=== PATIENT | female | born 1940 | race Two or more races ===

== ENCOUNTER 2017-09-20 21:58 | Emergency (ER) | payer MEDICARE ==
[2017-09-20 23:40] LABS: APPEARANCE,URINE CLEAR; BILIRUBIN,URINE NEGATIVE (NEGATIVE); GLUCOSE, URINE NEGATIVE (NEGATIVE); KETONES,URINE NEGATIVE (NEGATIVE); LEUKOCYTE ESTERASE,URINE LARGE (NEGATIVE); NITRITE,URINE NEGATIVE (NEGATIVE); PROTEIN,URINE NEGATIVE (NEGATIVE); URINE SPECIFIC GRAVITY 1.005
[2017-09-20 23:41] LABS: ABSOLUTE BASOPHILS # (AUTO) 0.1 10^3/uL (0.0-0.2); ABSOLUTE EOSINOPHILS # (AUTO) 0.3 10^3/uL (0.0-0.6); ABSOLUTE LYMPHOCYTES (AUTO) 1.6 10^3/uL (0.5-4.7); ABSOLUTE NEUT (AUTO) 5.2 10^3/uL (1.7-8.2); HEMATOCRIT 36.9 % (36.0-47.0); HEMOGLOBIN 12.5 g/dL (12.0-15.5); HGB HCT DIFFERENCE 0.6; LYMPHOCYTES % (AUTO) 19.3 % (13-45); MEAN CORPUSCULAR HGB CONC 33.8 g/dL (32.0-36.0); MEAN CORPUSCULAR VOLUME 95 fl (80-97); MONOCYTES % (AUTO) 12.1 % (3-13); RED CELL DISTRIBUTION WIDTH 14.5 % (11.5-14.0); SEGMENTED NEUTROPHILS % (AUTO) 63.6 % (42-78); WHITE BLOOD COUNT 8.1 10^3/uL (4.0-10.5)
[2017-09-20 23:43] LABS: ALANINE AMINOTRANSFERASE 61 U/L (9-52); ALBUMIN 4.5 g/dL (3.5-5.0); ALKALINE PHOSPHATASE 357 U/L (38-126); ANION GAP 16 (5-19); ASPARTATE AMINO TRANSFERASE 66 U/L (14-36); BILIRUBIN,DIRECT 0.7 mg/dL (0.0-0.4); BILIRUBIN,TOTAL 1.2 mg/dL (0.2-1.3); BLOOD UREA NITROGEN 21 mg/dL (7-20); CALCIUM 9.6 mg/dL (8.4-10.2); CARBON DIOXIDE 26 mmol/L (22-30); CHLORIDE 102 mmol/L (98-107); GLUCOSE 107 mg/dL (75-110); MAGNESIUM 1.8 mg/dL (1.6-2.3); POTASSIUM 4.2 mmol/L (3.6-5.0); SODIUM 144.1 mmol/L (137-145); TOTAL PROTEIN 8.8 g/dL (6.3-8.2)
--- NOTE | 2017-09-20 23:50 | RADIOLOGY REPORT (SQ) ---
EXAM DESCRIPTION: CT HEAD WITHOUT CLINICAL HISTORY: 77 years Female, fall 1 week ago, L occipital contusion, dizzy COMPARISON: None. TECHNIQUE: This exam was performed according to our departmental dose-optimization program, which includes automated exposure control, adjustment of the mA and/or kV according to patient size and/or use of iterative reconstruction technique. FINDINGS: Brain parenchyma appears intact. Minimal white matter microangiopathy, minimal volume loss, intracranial atherosclerosis. No evidence of mass, mass effect, or midline shift. No hemorrhage or infarct. Extra-axial structures appear otherwise grossly intact. IMPRESSION: No acute findings.
--- NOTE | 2017-09-21 00:05 | RADIOLOGY REPORT (SQ) ---
EXAM DESCRIPTION: KNEE LEFT 2 VIEWS CLINICAL HISTORY: 77 years, Female, L knee pain, atraumatic COMPARISON: None. NUMBER OF VIEWS: Two TECHNIQUE: Frontal and lateral LIMITATIONS: None. FINDINGS: Mild osteoarthritis includes moderate medial and patellofemoral joint space narrowing, atherosclerosis, 0.2 cm ossicular fragment-loose body at the medial aspect of the medial compartment, 0.3 cm ossicular fragment/loose body at the tibial spine. Minimal joint fluid. IMPRESSION: No acute findings. Mild osteoarthritis. 2011 [facility] [employer]- All Rights Reserved
--- NOTE | 2017-09-21 00:48 | ER Document Report ---
ED General - General Chief Complaint: Other Stated Complaint: HEAD INJURY Time Seen by Provider: 09/20/17 22:33 Information source: Patient TRAVEL OUTSIDE OF THE [place] IN LAST 30 DAYS: No - HPI Notes: Patient is a 77-year-old female history of hypertension and dementia and osteoarthritis presents to the emergency department with report that she accidentally fell 1 week ago striking her left occipital region and since then she has had a mild headache which is improving. She states she has chronic pain to the left knee and this causes her to have some trouble ambulating. Patient also reports she feels dizzy when she stands at times and has to hold onto the martinez when she is walking. The patient does have a 4 prong cane that she is supposed to be using. Patient denies any chest pain or neck pain or change in her chronic lower back pain. She reports no abdominal pain, constipation, diarrhea, dysuria. Patient is alert to person and place, but not to year and president. Family states this is consistent with a previous history of dementia and is unchanged. - Related Data Allergies/Adverse Reactions: No Known Allergies Allergy (Verified 09/20/17 21:58) Past Medical History - General Information source: Patient, Relative Cannot obtain history due to: Dementia - Social History Smoking Status: Never Smoker Frequency of alcohol use: None Drug Abuse: None Lives with: Family Family History: Reviewed & Not Pertinent Patient has suicidal ideation: No Patient has homicidal ideation: No - Past Medical History Cardiac Medical History: Reports: Hx Heart Attack - x3, Hx Hypertension Renal/ Medical History: Denies: Hx Peritoneal Dialysis Past Surgical History: Reports: Hx Open Heart Surgery - aorta repair Review of Systems - Review of Systems Notes: REVIEW OF SYSTEMS: CONSTITUTIONAL : Denies fever, chills, or sweats. Denies recent illness. EENT: Denies eye, ear, throat, or mouth pain or symptoms. Denies nasal or sinus congestion or discharge. Denies throat, tongue, or mouth swelling or difficulty swallowing. CARDIOVASCULAR: Denies chest pain. Denies palpitations or racing or irregular heart beat. Denies ankle edema. RESPIRATORY: Denies cough, cold, or chest congestion. Denies shortness of breath, difficulty breathing, or wheezing. GASTROINTESTINAL: Denies abdominal pain or distention. Denies nausea, vomiting , or diarrhea. Denies blood in vomitus, stools, or per rectum. Denies black, tarry stools. Denies constipation. GENITOURINARY: Denies difficulty urinating, painful urination, burning, frequency, blood in urine, or discharge. FEMALE GENITOURINARY: Denies vaginal bleeding, heavy or abnormal periods, irregular periods. Denies vaginal discharge or odor. MUSCULOSKELETAL: Denies back or neck pain or stiffness. SKIN: Denies rash, lesions or sores. HEMATOLOGIC : Denies easy bruising or bleeding. LYMPHATIC: Denies swollen, enlarged glands. NEUROLOGICAL: Denies new confusion or altered mental status. Denies passing out or loss of consciousness. Denies dizziness or lightheadedness. Denies weakness or paralysis or loss of use of either side. Denies problems with gait or speech. Denies sensory loss, numbness, or tingling. Denies seizures. PSYCHIATRIC: Denies anxiety or stress. Denies depression, suicidal ideation, or homicidal ideation. ALL OTHER SYSTEMS REVIEWED AND NEGATIVE. Dictation was performed using [employer] voice recognition software Physical Exam - Vital signs Vitals: Temp Pulse Resp BP Pulse Ox 98.0 F 68 20 170/60 H 100 09/20/17 22:07 09/20/17 22:07 09/20/17 22:07 09/20/17 22:07 09/20/17 22:07 - Notes Notes: PHYSICAL EXAMINATION: GENERAL: Well-appearing, well-nourished and in no acute distress. HEAD: Left occipital contusion. No bony deformity or crepitance. EYES: Pupils equal round and reactive to light, extraocular movements intact, conjunctiva are normal. Patient is status post cataract extraction. ENT: Nares patent, oropharynx clear without exudates. Moist mucous membranes. Tympanic membranes clear. NECK: Normal range of motion, supple without lymphadenopathy LUNGS: Breath sounds clear to auscultation bilaterally and equal. No wheezes rales or rhonchi. HEART: Regular rate and rhythm without murmurs ABDOMEN: Soft, nontender, nondistended abdomen. No guarding, no rebound. No masses appreciated. Female : deferred Musculoskeletal: Normal range of motion. No cyanosis. No CVA tenderness. 1+ bilateral lower extremity edema. Negative Homans. No palpable cord. Patient has pain to the left knee with motion and palpation. There is a small joint effusion appreciated. There is no erythema or crepitance, and the patient states the swelling is unchanged. NEUROLOGICAL: Cranial nerves grossly intact. Normal speech, normal gait. Normal sensory, motor exams. Patient is alert to person and place, but not to year. This is chronic given her history of dementia. No gross cerebellar ataxia. PSYCH: Normal mood, normal affect. SKIN: Warm, Dry, normal turgor, no rashes or lesions noted. Course - Re-evaluation Re-evalutation: 09/21/17 01:56 Patient was given Rocephin IV after urine culture was taken. Patient was also given Bactrim by mouth. No evidence for acute intracranial injury. No evidence for CVA. No evidence for knee fracture. No unilateral motor or sensory deficit noted that would suggest CVA. Mild liver enzyme elevation is noted, most likely secondary to statin use. Patient is encouraged to use a walker when ambulating. She will follow-up with orthopedics with consideration for steroid injection. No significant anemia or suggestion for sepsis or renal dysfunction. Orthostatics were normal. Question mild vertigo. No gross nystagmus noted. 09/21/17 01:58 - Vital Signs Vital signs: Temp Pulse Resp BP Pulse Ox 98.0 F 68 20 158/67 H 100 09/20/17 22:07 09/21/17 01:01 09/20/17 22:07 09/21/17 01:01 09/20/17 22:07 - Laboratory Result Diagrams: 09/20/17 23:17 09/20/17 23:17 Laboratory results interpreted by me: 09/20/17 09/20/17 09/20/17 23:17 23:17 23:17 RDW 14.5 H BUN 21 H Est GFR (Non-Af Amer) 54 L Direct Bilirubin 0.7 H AST 66 H ALT 61 H Alkaline Phosphatase 357 H Total Protein 8.8 H Urine Blood SMALL H Urine Urobilinogen 2.0 H Ur Leukocyte Esterase LARGE H Discharge - Discharge Clinical Impression: Elevated liver enzymes Head injury Qualifiers: Encounter type: initial encounter Qualified Code(s): S09.90XA - Unspecified injury of head, initial encounter Contusion Qualifiers: Encounter type: initial encounter Contusion area: head Contusion of head detail : scalp Qualified Code(s): S00.03XA - Contusion of scalp, initial encounter Osteoarthritis Qualifiers: Osteoarthritis location: knee Osteoarthritis type: primary Laterality: left Qualified Code(s): M17.12 - Unilateral primary osteoarthritis, left knee Urinary tract infection Qualifiers: Urinary tract infection type: acute cystitis Hematuria presence: without hematuria Qualified Code(s): N30.00 - Acute cystitis without hematuria Condition: Stable Disposition: HOME, SELF-CARE Instructions: Head Injury Precautions ([facility]), Osteoarthritis ([facility]), Trimethoprim -Sulfa ([facility]), Urinary Tract Infection ([facility]) Additional Instructions: Return to the emergency department in case of fever, vomiting. Stop taking Lipitor due to elevated liver enzymes. You need to have your blood work reevaluated for your liver enzymes within the next 1-2 months. Follow-up with orthopedics for knee osteoarthritis. Would consider a steroid injection to help with the knee pain. Stand up slowly and would suggest using a walker . Prescriptions: Sulfamethoxazole/Trimethoprim [Bactrim Ds Tablet] 1 each PO BID #14 tablet Referrals: RACHAEL ALBARADO MD [ACTIVE STAFF] - Follow up as needed
[2017-09-21] MEDS ORDERED: CEFTRIAXONE INJ 1000 MG VIAL IV ONE (00:54)
[2017-09-21] MEDS ORDERED: SULFAMETHOXAZOLE/TRIMETHOPRIM 800-160 MG TABLET PO ONE (00:55)
[2017-09-21 02:12] VITALS: BP 145/75
--- NOTE | 2017-09-21 03:47 | EKG REPORT ---
SEVERITY:- ABNORMAL ECG - SINUS RHYTHM, ABNRM R PROG, CONSIDER ASMI OR LEAD PLACEMENT : Confirmed by: Loulou Moore 21-Sep-2017 03:45:59
== END 2017-09-21 02:35 | disposition home or self-care (01) ==
LOC: ER 21:58
DX: S00.03XA Contusion of scalp, initial encounter (principal); R74.8 Abnormal levels of other serum enzymes; N30.00 Acute cystitis without hematuria; I10 Essential (primary) hypertension; W19.XXXA Unspecified fall, initial encounter; F03.90 Unspecified dementia, unspecified severity, without behavioral disturbance, psychotic disturbance, mood disturbance, and anxiety; M17.12 Unilateral primary osteoarthritis, left knee; R60.0 Localized edema; M25.462 Effusion, left knee; M25.562 Pain in left knee; M54.5 Low back pain; G89.29 Other chronic pain; R42 Dizziness and giddiness; I25.2 Old myocardial infarction
CPT/HCPCS: 93005; 99284; 96365; 36415; 87086; 83735; 84443; 85025; 87088; 80053; 81001; 73560; 70450; 93010; J0696; A9270

== ENCOUNTER 2019-01-27 04:43 | Inpatient (IN) | payer MEDICARE ==
--- NOTE | 2019-01-27 06:41 | RADIOLOGY REPORT (SQ) ---
EXAM DESCRIPTION: XR HIP 2 OR MORE VIEWS COMPLETED DATE/TME: 01/27/2019 00:00 CLINICAL HISTORY: 78 years, Female, fall, pain to right hip COMPARISON: None. NUMBER OF VIEWS: 2 TECHNIQUE: AP pelvis single view right hip LIMITATIONS: None. FINDINGS: Osteopenia. Moderate degenerative change of the hips bilaterally. Negative for acute fracture or dislocation IMPRESSION: Osteopenia with moderate degenerative change copyright 2010 [employer]- All Rights Reserved
--- NOTE | 2019-01-27 07:17 | ER Document Report ---
ED Fall - General Chief Complaint: Fall Stated Complaint: FALL,SIDE PAIN Time Seen by Provider: 01/27/19 06:57 TRAVEL OUTSIDE OF THE [place] IN LAST 30 DAYS: No - HPI Notes: Patient is a 78-year-old female that presents to the emergency department for chief complaint of fall. Patient lives at home with family and does have dementia which limits HPI. Family states they heard her fall early this morning and when they found her she was lying next to her bed on her right side. Patient had was slightly und erneath the night standing they do believe she hit her head on the way down. Patient states she has a history of syncopal episodes in the past as well as poor balance. They are concerned she may have passed out prior to falling because she appeared "dazed" when they found her in the room. Patient was awake upon their arrival which was very shortly after hearing the fall. Patient has complained of pain in her right side. She does have chronic knee pain bilaterally. Patient did report feeling nauseated but has not vomited. Past Medical History: Hypertension, CAD Past Surgical History: Coronary stenting Social History: No tobacco or alcohol use Family History: Reviewed and noncontributory for presenting illness Allergies: Reviewed, see documented allergy list. REVIEW OF SYSTEMS: CONSTITUTIONAL : No fever No chills No diaphoresis No recent illness EENT: No vision changes No congestion No sore throat CARDIOVASCULAR: No chest pain No palpitations RESPIRATORY: No shortness of breath No cough No difficulty breathing GASTROINTESTINAL: No abdominal pain No nausea No vomiting No diarrhea GENITOURINARY: No dysuria No hematuria No difficulty urinating MUSCULOSKELETAL: Pelvic pain Bilateral hip pain No back pain No leg pain No arm pain SKIN: No rashes No lesions LYMPHATIC: No swollen, enlarged glands. NEUROLOGICAL: No lightheadedness No headache No weakness No paresthesias PSYCHIATRIC: No anxiety No depression PHYSICAL EXAMINATION: Vital signs reviewed, nursing noted reviewed. GENERAL: Well-appearing, well-nourished and in no acute distress. HEAD: Atraumatic, normocephalic. EYES: Eyes appear normal, extraocular movements intact, sclera anicteric, conjunctiva are normal. ENT: nares patent, oropharynx clear without exudates. Moist mucous membranes. NECK: No midline spinal tenderness. Normal range of motion, supple without lymphadenopathy LUNGS: Breath sounds clear to auscultation bilaterally and equal. No wheezes rales or rhonchi. HEART: Regular rate and rhythm without murmurs ABDOMEN: Soft, nontender, normoactive bowel sounds. No rebound, guarding, or rigidity. No masses appreciated. EXTREMITIES: Tenderness diffusely with edema and decreased range of motion of the right elbow. Normal right shoulder and wrist exam. Pelvis stable but tender to palpation over pubic symphysis. Decreased hip flexion bilaterally. No lateral hip tenderness or pain with logroll. Normal knee exam bilaterally. Good range of motion, no pitting or edema. NEUROLOGICAL: No focal neurological deficits. Moves all extremities spontaneously Motor and sensory grossly intact on exam. PSYCH: Normal mood, normal affect. SKIN: Warm, Dry, normal turgor, no rashes or lesions noted on exposed skin - Related data Allergies/Adverse Reactions: No Known Allergies Allergy (Verified 09/20/17 21:58) Past Medical History - Social History Smoking Status: Unknown if Ever Smoked Family History: Reviewed & Not Pertinent Patient has suicidal ideation: No Patient has homicidal ideation: No - Past Medical History Cardiac Medical History: Reports: Hx Heart Attack - x3, Hx Hypertension Renal/ Medical History: Denies: Hx Peritoneal Dialysis Past Surgical History: Reports: Hx Open Heart Surgery - aorta repair Physical Exam - Vital signs Vitals: Temp Resp BP Pulse Ox 97.8 F 12 166/82 H 97 01/27/19 05:01 01/27/19 05:01 01/27/19 05:01 01/27/19 05:01 Course - Re-evaluation Re-evalutation: 01/27/19 07:16 Vitals reviewed. Nursing notes reviewed. Patient placed on telemetry monitoring for concern she may have had a syncopal episode prior to falling. EKG will be ordered. Patient had x-ray of her pelvis which showed no acute process. She does have significant tenderness in the pelvis and CT scan will be ordered for further visualization. 01/27/19 10:[address] shows multiple pelvic fractures including superior and inferior pubic rami as well as right iliac and sacrum. Patient also has a right olecranon fracture with 2 cm of distraction. I did discuss her images with Dr. Yañez who will admit her to the hospital for surgical management of the right elbow. He does not feel her pelvic fractures are indicating transfer to a trauma center or requiring surgical management. Patient has remained hemodynamically stable and is in agreement with plan of care at time of admission. Laboratory 01/27/19 01/27/19 01/27/19 07:50 07:50 07:50 WBC 14.0 H RBC 3.43 L Hgb 11.0 L Hct 32.1 L MCV 94 MCH 31.9 MCHC 34.1 RDW 15.0 H Plt Count 222 Seg Neutrophils % 87.9 H Lymphocytes % 5.7 L Monocytes % 5.8 Eosinophils % 0.4 Basophils % 0.2 Absolute Neutrophils 12.3 H Absolute Lymphocytes 0.8 Absolute Monocytes 0.8 Absolute Eosinophils 0.1 Absolute Basophils 0.0 Sodium 135.3 L Potassium 4.0 Chloride 102 Carbon Dioxide 28 Anion Gap 5 BUN 18 Creatinine 0.88 Est GFR ( Amer) > 60 Est GFR (Non-Af Amer) > 60 Glucose 178 H Calcium 9.4 Total Bilirubin 1.0 Direct Bilirubin 0.4 Neonat Total Bilirubin Not Reportable Neonat Direct Bilirubin Not Reportable Neonat Indirect Bili Not Reportable AST 52 H ALT 28 Alkaline Phosphatase 209 H Troponin I < 0.012 Total Protein 8.0 Albumin 3.7 Hip/Pelvis X-Ray 01/27/19 00:00 IMPRESSION: Osteopenia with moderate degenerative change copyright 2011 [employer]- All Rights Reserved Cervical Spine CT 01/27/19 07:12 IMPRESSION: No fracture or static subluxation of the cervical spine. Elbow X-Ray 01/27/19 07:12 IMPRESSION: Transversely oriented displaced fracture through the olecranon with 2 cm of associated distraction. Moderate associated joint effusion. Head CT 01/27/19 07:12 IMPRESSION: CHRONIC CHANGES OF ATROPHY AND MICROVASCULAR ISCHEMIA. NO ACUTE P ROCESS. EVIDENCE OF ACUTE STROKE: NO. Pelvis CT 01/27/19 07:12 IMPRESSION: 1. Multiple multiple pelvic fractures including: - minimally displaced fracture of the posterior right iliac crest extending to the sacroiliac joint. - small fracture along the right anterior sacral ala. - comminuted fracture of the left superior pubic ramus extending to the pubic symphysis. - fracture of the right superior pubic ramus adjacent to the acetabulum without definite acetabular extension. - bilateral mildly displaced inferior pubic rami fractures. 2. Associated pelvic hematoma adjacent to the pubic symphysis as above. 3. Osteopenia. Chest X-Ray 01/27/19 07:13 IMPRESSION: No evidence of acute cardiopulmonary process. - Vital Signs Vital signs: Temp Pulse Resp BP Pulse Ox 97.8 F 65 20 166/73 H 95 01/27/19 05:01 01/27/19 09:28 01/27/19 09:00 01/27/19 08:01 01/27/19 09:00 - Laboratory Result Diagrams: 01/27/19 07:50 01/27/19 07:50 Laboratory results interpreted by me: 01/27/19 01/27/19 07:50 07:50 WBC 14.0 H RBC 3.43 L Hgb 11.0 L Hct 32.1 L RDW 15.0 H Seg Neutrophils % 87.9 H Lymphocytes % 5.7 L Absolute Neutrophils 12.3 H Sodium 135.3 L Glucose 178 H AST 52 H Alkaline Phosphatase 209 H - EKG Interpretation by Me Additional EKG results interpreted by me: 01/27/19 08:03 Interpreted by myself 0728: Normal sinus rhythm, rate 67, normal axis, no ectopy, no ST elevation Discharge - Discharge Clinical Impression: Pelvic hematoma Fracture of right olecranon process Qualifiers: Encounter type: initial encounter Fracture type: closed Qualified Code(s): S52.021A - Displaced fracture of olecranon process without intraarticular extension of right ulna, initial encounter for closed fracture Multiple pelvic fractures Qualifiers: Encounter type: initial encounter Fracture type: closed Fracture alignment: without disruption of pelvic ring Qualified Code(s): S32.82XA - Multiple fractures of pelvis without disruption of pelvic ring, initial encounter for closed fracture Condition: Stable Disposition: ADMITTED INPATIENT Admitting Provider: Dr. Yañez Unit Admitted: Surgical Floor
[2019-01-27 08:15] LABS: ABSOLUTE EOSINOPHILS # (AUTO) 0.1 10^3/uL (0.0-0.6); ABSOLUTE LYMPHOCYTES (AUTO) 0.8 10^3/uL (0.5-4.7); ABSOLUTE MONOCYTES (AUTO) 0.8 10^3/uL (0.1-1.4); ABSOLUTE NEUT (AUTO) 12.3 10^3/uL (1.7-8.2); BASOPHILS % (AUTO) 0.2 % (0-2); EOSINOPHILS % (AUTO) 0.4 % (0-6); HEMATOCRIT 32.1 % (36.0-47.0); LYMPHOCYTES % (AUTO) 5.7 % (13-45); MEAN CORPUSCULAR HEMOGLOBIN 31.9 pg (27.0-33.4); MEAN CORPUSCULAR HGB CONC 34.1 g/dL (32.0-36.0); MEAN CORPUSCULAR VOLUME 94 fl (80-97); MONOCYTES % (AUTO) 5.8 % (3-13); PLATELET COUNT 222 10^3/uL (150-450); RED BLOOD COUNT 3.43 10^6/uL (3.72-5.28); SEGMENTED NEUTROPHILS % (AUTO) 87.9 % (42-78); TOTAL CELLS COUNTED % (AUTO) 100 %
--- NOTE | 2019-01-27 08:29 | EKG REPORT ---
SEVERITY:- NORMAL ECG - SINUS RHYTHM : Confirmed by: Corina Mcgarry MD 27-Jan-2019 08:29:02
--- NOTE | 2019-01-27 08:31 | RADIOLOGY REPORT (SQ) ---
EXAM DESCRIPTION: ELBOW RIGHT AP/LAT COMPLETED DATE/TIME: 01/27/2019 8:21 am REASON FOR STUDY: trauma COMPARISON: None. NUMBER OF VIEWS: Two views. TECHNIQUE: AP, lateral, and both oblique radiographic images acquired of the right elbow. LIMITATIONS: None. FINDINGS: MINERALIZATION: Decreased. BONES: There is a displaced transversely oriented fracture through the olecranon with 2 cm of associa sarah distraction. No additional fractures identified. JOINT: Moderate joint effusion with prominent anterior fat pad. SOFT TISSUES: Soft tissue swelling about the elbow. OTHER: No other significant finding. IMPRESSION: Transversely oriented displaced fracture through the olecranon with 2 cm of associated d istraction. Moderate associated joint effusion. TECHNICAL DOCUMENTATION: JOB ID: [id number] [employer]- All Rights Reserved Reading location - IP/workstation name: [email or web address]
--- NOTE | 2019-01-27 08:32 | RADIOLOGY REPORT (SQ) ---
EXAM DESCRIPTION: CHEST SINGLE VIEW COMPLETED DATE/TIME: 01/27/2019 8:21 am REASON FOR STUDY: trauma COMPARISON: None. EXAM PARAMETERS: NUMBER OF VIEWS: One view. TECHNIQUE: Single frontal radiographic view of the chest acquired. RADIATION DOSE: NA LIMITATIONS: None. FINDINGS: LUNGS AND PLEURA: No opacities, masses or pneumothorax. No pleural effusion. MEDIASTINUM AND HILAR STRUCTURES: No masses. Contour normal. HEART AND VASCULAR STRUCTURES: Normal heart size ectatic atherosclerotic thoracic aorta. BONES: Osteopenia. No acute findings. HARDWARE: None in the chest. OTHER: No other significant finding. IMPRESSION: No evidence of acute cardiopulmonary process. TECHNICAL DOCUMENTATION: JOB ID: [id number] [employer]- All Rights Reserved Reading location - IP/workstation name: [email or web address]
[2019-01-27 08:36] LABS: ALANINE AMINOTRANSFERASE 28 U/L (9-52); ALBUMIN 3.7 g/dL (3.5-5.0); ALKALINE PHOSPHATASE 209 U/L (38-126); ANION GAP 5 (5-19); ASPARTATE AMINO TRANSFERASE 52 U/L (14-36); BILIRUBIN,DIRECT 0.4 mg/dL (0.0-0.4); BLOOD UREA NITROGEN 18 mg/dL (7-20); CALCIUM 9.4 mg/dL (8.4-10.2); CARBON DIOXIDE 28 mmol/L (22-30); CHLORIDE 102 mmol/L (98-107); GLUCOSE 178 mg/dL (75-110); SODIUM 135.3 mmol/L (137-145)
--- NOTE | 2019-01-27 09:07 | RADIOLOGY REPORT (SQ) ---
EXAM DESCRIPTION: CT HEAD WITHOUT COMPLETED DATE/TIME: 01/27/2019 8:51 am REASON FOR STUDY: trauma COMPARISON: 09/20/2017 TECHNIQUE: Axial images acquired through the brain without intravenous contrast. Images reviewed wi th bone, brain and subdural windows. Additional sagittal and coronal reconstructions were generated. Images stored on PACS. All CT scanners at this facility use dose modulation, iterative reconstruction, and/or weight based d osing when appropriate to reduce radiation dose to as low as reasonably achievable (ALARA). [facility]: Dose Right [facility]: CareDose [facility]: Dose Right [facility]: Teradose 4D [facility]: [employer] RADIATION DOSE: CT Rad equipment meets quality standard of care and radiation dose reduction techniq ues were employed. CTDIvol: 53.2 mGy. DLP: 1017 mGy-cm.mGy. LIMITATIONS: None. FINDINGS: VENTRICLES: Prominent. CEREBRUM: No masses. No hemorrhage. No midline shift. Areas of low density in the white matter mos t likely due to chronic micro-vascular ischemic change. No evidence for acute infarction. CEREBELLUM: No masses. No hemorrhage. No alteration of density. No evidence for acute infarction. EXTRAAXIAL SPACES: Age-related involutional change. No fluid collections. No masses. ORBITS AND GLOBE: No intra- or extraconal masses. Normal contour of globe without masses. Prior cat aract surgery. CALVARIUM: No fracture. Multiple missing maxillary teeth. PARANASAL SINUSES: No fluid or mucosal thickening. SOFT TISSUES: No mass or hematoma. OTHER: No other significant finding. IMPRESSION: CHRONIC CHANGES OF ATROPHY AND MICROVASCULAR ISCHEMIA. NO ACUTE PROCESS. EVIDENCE OF ACUTE STROKE: NO. TECHNICAL DOCUMENTATION: JOB ID: [id number] Quality ID # [id number]: Final reports with documentation of one or more dose reduction techniques (e.g., Au tomated exposure control, adjustment of the mA and/or kV according to patient size, use of iterative reconstruction technique) 2010 [email or web address]- All Rights Reserved Reading location - IP/workstation name: [email or web address]
--- NOTE | 2019-01-27 09:09 | RADIOLOGY REPORT (SQ) ---
EXAM DESCRIPTION: CT CERVICAL SPINE WITHOUT COMPLETED DATE/TIME: 01/27/2019 8:51 am REASON FOR STUDY: trauma COMPARISON: None. TECHNIQUE: Axial images acquired through the cervical spine without intravenous contrast. Images re viewed with lung, soft tissue and bone windows. Reconstructed coronal and sagittal MPR images review ed. Images stored on PACS. All CT scanners at this facility use dose modulation, iterative reconstruction, and/or weight based d osing when appropriate to reduce radiation dose to as low as reasonably achievable (ALARA). [facility]: Dose Right [facility]: CareDose [facility]: Dose Right [facility]: Teradose 4D [facility]: [employer] RADIATION DOSE: CT Rad equipment meets quality standard of care and radiation dose reduction techniq ues were employed. CTDIvol: 16.3 mGy. DLP: 327 mGy-cm. mGy. LIMITATIONS: None. FINDINGS: ALIGNMENT: Anatomic. MINERALIZATION: Normal. VERTEBRAL BODIES: No fractures or dislocation. DISCS: Moderate multilevel disc degenerative disease. FACETS, LATERAL MASSES, POSTERIOR ELEMENTS: No fractures. No dislocation. No acute findings. HARDWARE: None in the spine. VISUALIZED RIBS: No fractures. LUNG APICES AND SOFT TISSUES: No significant or acute findings. OTHER: No other significant finding. IMPRESSION: No fracture or static subluxation of the cervical spine. TECHNICAL DOCUMENTATION: JOB ID: [id number] Quality ID # [id number]: Final reports with documentation of one or more dose reduction techniques (e.g., Au tomated exposure control, adjustment of the mA and/or kV according to patient size, use of iterative reconstruction technique) 2010 [email or web address]- All Rights Reserved Reading location - IP/workstation name: [email or web address]
--- NOTE | 2019-01-27 09:21 | RADIOLOGY REPORT (SQ) ---
EXAM DESCRIPTION: CT PELVIS WITHOUT COMPLETED DATE/TIME: 01/27/2019 8:51 am REASON FOR STUDY: trauma, b/l hip pain COMPARISON: 01/27/2019 radiograph TECHNIQUE: CT scan of the pelvis performed without intravenous or oral contrast. Images reviewed wi th soft tissue and bone windows. Reconstructed coronal and sagittal MPR images reviewed. All images stored on PACS. All CT scanners at this facility use dose modulation, iterative reconstruction, and/or weight based d osing when appropriate to reduce radiation dose to as low as reasonably achievable (ALARA). [facility]: Dose Right [facility]: CareDose [facility]: Dose Right [facility]: Teradose 4D [facility]: [employer] RADIATION DOSE: CT Rad equipment meets quality standard of care and radiation dose reduction techniq ues were employed. CTDIvol: 24.7 mGy. DLP: 720 mGy-cm. mGy. LIMITATIONS: None. FINDINGS: PELVIC BONES: Minimally displaced fracture of the right posterior iliac crest extending to the sacroiliac joint. Small fracture along the right anterior sacral ala. Comminuted fracture of t he left superior pubic ramus extending to the pubic symphysis. Additional fracture of the right supe rior pubic ramus adjacent to the acetabulum without definite acetabular extension. There are bilater al mildly displaced inferior pubic rami fractures. VISUALIZED SPINE: Lower lumbar spondylosis and facet arthropathy. HIP(S): Degenerative change with osteophytosis and joint space loss. No definite proximal femur frac ture. PELVIC SOFT TISSUES: Hematoma adjacent to the pubic symphysis measuring approximately 6.9 by 3.4 cm ( series 4, image 65). Mild amount of additional irregular hematoma extending superiorly. EXTRAPELVIC SOFT TISSUES: No significant findings. OTHER: Osteopenia. IMPRESSION: 1. Multiple multiple pelvic fractures including: - minimally displaced fracture of the posterior right iliac crest extending to the sacroiliac joint. - small fracture along the right anterior sacral ala. - comminuted fracture of the left superior pubic ramus extending to the pubic symphysis. - fracture of the right superior pubic ramus adjacent to the acetabulum without definite acetabular e xtension. - bilateral mildly displaced inferior pubic rami fractures. 2. Associated pelvic hematoma adjacent to the pubic symphysis as above. 3. Osteopenia. TECHNICAL DOCUMENTATION: JOB ID: [id number] Quality ID # [id number]: Final reports with documentation of one or more dose reduction techniques (e.g., Au tomated exposure control, adjustment of the mA and/or kV according to patient size, use of iterative reconstruction technique) 2010 [employer]- All Rights Reserved Reading location - IP/workstation name: [email or web address]
[2019-01-27] MEDS ORDERED: MORPHINE SULFATE 10 MG/ML INJ IV ONE ×2 (10:31→20:11)
[2019-01-27] MEDS ORDERED: MORPHINE SULFATE 10 MG/ML INJ IV PRN (21:47)
--- NOTE | 2019-01-28 06:51 | PDOC H&P ---
History of Present Illness Admission Date/PCP: 01/27/19 10:29 History of Present Illness: JOSEPH VELÁZQUEZ is a 78 year old female The patient is a 78-year-old female who is a household ambulator and who sustained an unwitnessed fall on the day of admission. She was evaluated em ergency room where a nondisplaced pelvic fractures were identified as well as a right olecranon fracture. The patient is admitted to the orthopedic service for fracture management. Past Medical History Cardiac Medical History: Reports: Myocardial Infarction - x3, Hypertension Past Surgical History Past Surgical History: Reports: None Social History Information Source: Patient, [facility] Records Lives with: Family Smoking Status: Never Smoker Frequency of Alcohol Use: None Hx Recreational Drug Use: No Drugs: None Hx Prescription Drug Abuse: No Family History Family History: Reviewed & Not Pertinent Parental Family History Reviewed: No Children Family History Reviewed: No Sibling(s) Family History Reviewed.: No Medication/Allergy Home Medications: Amlodipine Besylate 5 mg PO DAILY 09/24/14 Losartan Potassium 100 mg PO DAILY 09/24/14 Metoprolol Tartrate [Lopressor 50 mg Tablet] 50 mg PO BID 09/24/14 Atorvastatin Calcium [Lipitor 40 mg Tablet] 40 mg PO QHS 01/27/19 Allergies/Adverse Reactions: No Known Allergies Allergy (Verified 09/20/17 21:58) Review of Systems ROS unobtainable: Due to mental status Physical Exam Vital Signs: Temp Pulse Resp BP Pulse Ox 36.9 C 61 18 150/64 H 97 01/27/19 23:27 01/27/19 23:27 01/27/19 23:27 01/27/19 23:27 01/27/19 17:01 Intake & Output 01/26/19 01/27/19 01/28/19 06:59 06:59 06:59 Intake Total 320 Output Total 325 Balance -5 Weight 80.5 kg 68.8 kg Physical Exam: Patient is an elderly female lying in hospital bed. There is no family in room but her nurse is present. The patient is interactive but clearly confused. She is just discontinued her IV. General appearance: PRESENT: no acute distress, mild distress Head exam: PRESENT: normocephalic Respiratory exam: PRESENT: unlabored Cardiovascular exam: PRESENT: RRR Pulses: PRESENT: normal radial pulses Vascular exam: PRESENT: normal capillary refill GI/Abdominal exam: PRESENT: soft Rectal exam: PRESENT: deferred Extremities exam: PRESENT: other - Some tenderness associated associated with compression of the pelvis from the outside as well as palpation of the pubic rim. Passive range of motion of the lower extremities does not appear to be particularly painful for the patient. Leg lengths are equal. There is brisk capillary refill in each of the digits. Examination of the right elbow reveals considerable swelling and ecchymosis over the olecranon region. The patient has tenderness palpation. Range of motion is not assessed. There is brisk capillary refill to the each of the digits of the right hand and is palpable radial pulses. No skin abnormalities other than the bruising. Neurological exam: PRESENT: awake Results Laboratory Results: 01/27/19 07:50 01/27/19 07:50 01/27/19 01/27/19 07:50 07:50 WBC 14.0 H RBC 3.43 L Hgb 11.0 L Hct 32.1 L MCV 94 MCH 31.9 MCHC 34.1 RDW 15.0 H Plt Count 222 Seg Neutrophils % 87.9 H Lymphocytes % 5.7 L Monocytes % 5.8 Eosinophils % 0.4 Basophils % 0.2 Absolute Neutrophils 12.3 H Absolute Lymphocytes 0.8 Absolute Monocytes 0.8 Absolute Eosinophils 0.1 Absolute Basophils 0.0 Sodium 135.3 L Potassium 4.0 Chloride 102 Carbon Dioxide 28 Anion Gap 5 BUN 18 Creatinine 0.88 Est GFR ( Amer) > 60 Est GFR (Non-Af Amer) > 60 Glucose 178 H Calcium 9.4 Total Bilirubin 1.0 AST 52 H ALT 28 Alkaline Phosphatase 209 H Total Protein 8.0 Albumin 3.7 01/27/19 07:50 Troponin I < 0.012 Impressions: Hip/Pelvis X-Ray 01/27/19 00:00 IMPRESSION: Osteopenia with moderate degenerative change copyright 2011 [employer]- All Rights Reserved Cervical Spine CT 01/27/19 07:12 IMPRESSION: No fracture or static subluxation of the cervical spine. Elbow X-Ray 01/27/19 07:12 IMPRESSION: Transversely oriented displaced fracture through the olecranon with 2 cm of associated distraction. Moderate associated joint effusion. Head CT 01/27/19 07:12 IMPRESSION: CHRONIC CHANGES OF ATROPHY AND MICROVASCULAR ISCHEMIA. NO ACUTE PROCESS. EVIDENCE OF ACUTE STROKE: NO. Pelvis CT 01/27/19 07:12 IMPRESSION: 1. Multiple multiple pelvic fractures including: - minimally displaced fracture of the posterior right iliac crest extending to the sacroiliac joint. - small fracture along the right anterior sacral ala. - comminuted fracture of the left superior pubic ramus extending to the pubic symphysis. - fracture of the right superior pubic ramus adjacent to the acetabulum without definite acetabular extension. - bilateral mildly displaced inferior pubic rami fractures. 2. Associated pelvic hematoma adjacent to the pubic symphysis as above. 3. Osteopenia. Chest X-Ray 01/27/19 07:13 IMPRESSION: No evidence of acute cardiopulmonary process. Status: Imported from PACS Assessment & Plan - Diagnosis (1) Fracture of right olecranon process Qualifiers: Encounter type: initial encounter Fracture type: closed Qualified Code(s): S52.021A - Displaced fracture of olecranon process without intraarticular extension of right ulna, initial encounter for closed fracture Is this a current diagnosis for this admission?: Yes Plan: This is a fracture of the be best served with an open reduction internal fixation to restore right elbow active range of motion. It is a procedure at that will most likely be done under general anesthetic with limited blood loss and approximately 45 minutes of duration. The patient will have restricted weightbearing of the right upper extremity following the procedure. Because of the history of myocardial infarction a cardiology consult has been requested. EKG by formal interpretation demonstrates sinus rhythm without abnormality. (2) Multiple pelvic fractures Qualifiers: Encounter type: initial encounter Fracture type: closed Fracture alignment: without disruption of pelvic ring Qualified Code(s): S32.82XA - Multiple fractures of pelvis without disruption of pelvic ring, initial encounter for closed fracture Is this a current diagnosis for this admission?: Yes Plan: Patient has multiple regions of pelvic fractures identified by CT scan. Associated with these fractures is an anterior hematoma which is expected from the fracture itself. Whether or not this will be clinically significant from a volume standpoint will have to be determined by observation. None of these fractures is unstable but I think that they will be painful and limit the patient's ability to weight-bear for the coming month or 2. - Time Time Spent: 50 to 70 Minutes Anticipated discharge: SNF Within: Other
[2019-01-28] MEDS ORDERED: ONDANSETRON 4 MG TAB.RAPDIS PO PRN (08:02)
--- NOTE | 2019-01-28 08:33 | RADIOLOGY REPORT (SQ) ---
EXAM DESCRIPTION: CHEST SINGLE VIEW COMPLETED DATE/TIME: 01/28/2019 8:15 am REASON FOR STUDY: PRE OP COMPARISON: AP chest 01/27/2019 EXAM PARAMETERS: NUMBER OF VIEWS: One view. TECHNIQUE: Single frontal radiographic view of the chest acquired. RADIATION DOSE: NA LIMITATIONS: None. FINDINGS: LUNGS AND PLEURA: No opacities, masses or pneumothorax. No pleural effusion. MEDIASTINUM AND HILAR STRUCTURES: No masses. Contour normal. HEART AND VASCULAR STRUCTURES: Heart normal in size. Normal vasculature. BONES: Convex rightward thoracic curvature. HARDWARE: None in the chest. OTHER: No other significant finding. IMPRESSION: NO ACUTE RADIOGRAPHIC FINDING IN THE CHEST. TECHNICAL DOCUMENTATION: JOB ID: [id number] [employer]- All Rights Reserved Reading location - IP/workstation name: [email or web address]
[2019-01-28] MEDS: RINGERS SOLUTION,LACTATED 1,000 ML IV PRN ×2 (08:34→22:07)
[2019-01-28 08:38] LABS: HEMATOCRIT 28.2 % (36.0-47.0); HEMOGLOBIN 9.8 g/dL (12.0-15.5); MEAN CORPUSCULAR HEMOGLOBIN 32.4 pg (27.0-33.4); MEAN CORPUSCULAR HGB CONC 34.9 g/dL (32.0-36.0); MEAN CORPUSCULAR VOLUME 93 fl (80-97); PLATELET COUNT 185 10^3/uL (150-450); RED BLOOD COUNT 3.03 10^6/uL (3.72-5.28); RED CELL DISTRIBUTION WIDTH 14.8 % (11.5-14.0)
[2019-01-28 08:44] LABS: INTERNATIONAL RATION (INR) 1.19; PROTHROMBIN TIME 15.7 SEC (11.4-15.4)
[2019-01-28 08:45] LABS: PARTIAL THROMBOPLASTIN TIME 38.6 SEC (23.5-35.8)
[2019-01-28 09:05] LABS: ANION GAP 8 (5-19); BLOOD UREA NITROGEN 31 mg/dL (7-20); CALCIUM 8.9 mg/dL (8.4-10.2); CARBON DIOXIDE 27 mmol/L (22-30); CHLORIDE 99 mmol/L (98-107); GLUCOSE 146 mg/dL (75-110); POTASSIUM 4.3 mmol/L (3.6-5.0); SODIUM 134.4 mmol/L (137-145)
[2019-01-28] MEDS: MORPHINE SULFATE 10 MG/ML INJ IV PRN ×2 (11:00→18:09)
--- NOTE | 2019-01-28 14:26 | XCELERA REPORT ---
[address] [address] Transthoracic Echocardiogram Report Name: JOSEPH VELÁZQUEZ Age: 78 yrs Gender: Female : 1940 Patient Status: Inpatient Patient Location: [address] [place], [place] [address] Study Date: 01/28/2019 09:37 AM Height: 65 in Weight: 151 lb BSA: 1.8 m2 Procedure: A two-dimensional transthoracic echocardiogram with color flow and Doppler was performed. Images were not obtained from all of the standard acoustic windows due to the limited scope of the study. Reason For Study: MURMUR /CAD/Preop History: MURMUR /CAD/Preop. Ordering Physician: CORINA GONZALEZ Performed By: Ольга Love Interpretation Summary The left ventricle is normal in size. There is normal left ventricular wall thickness. No 'True apical 2 chmber viws' obtained.Hence cannot commentt on the apical and basal anterior wall and the apical and basal inferior martinez.The mid anterior , the mid inferior , and the rest of the LV martinez contract normally.LVEF in these limited views is normal at 65%. Doppler measurements suggest impaired left ventricular relaxation, which is associated with grade I/IV or mild diastolic dysfunction There is no thrombus. No ASD ,VSD , or PFO seen. The right ventricle is normal in size and function. The right atrium is normal. The left atrial size is normal. There is no evidence of mitral valve prolapse. There is no vegetation seen on the mitral valve. There is no mitral valve stenosis. There is a trace to mild amount of mitral regurgitation There is no aortic valvular vegetation. There is no aortic valve stenosis There is no LVOT obstruction. No aortic regurgitation is present. There is no tricuspid stenosis. There is mild pulmonary hypertension by echo VSP is 31 to 36 mm of Hg , with RA mean of 5 to 10. The pulmonic valve is not well visualized. The inferior vena cava appeared normal and decreased > 50% with respiration (RAP 5-10 mmHg) There is a mild amount of tricuspid regurgitation There is no pericardial effusion. MMode/2D Measurements & Calculations RVDd: 2.6 cm LVIDd: 4.1 cm FS: 37.1 % Ao root diam: 2.8 cm IVSd: 0.86 cm LVIDs: 2.6 cm EDV(Teich): 74.7 ml Ao root area: 6.3 cm2 LVPWd: 0.90 cm ESV(Teich): 24.3 ml LA dimension: 3.6 cm EF(Teich): 67.4 % Doppler Measurements & Calculations MV E max chris: MV P1/2t max chris: Ao V2 max: LV V1 max P.6 cm/sec 68.6 cm/sec 126.4 cm/sec 3.5 mmHg MV A max chris: MV P1/2t: 119.8 msec Ao max PG: LV V1 max: 92.3 cm/sec MVA(P1/2t): 1.8 cm2 6.4 mmHg 93.8 cm/sec MV E/A: 0.73 MV dec slope: 167.7 cm/sec2 MV dec time: 0.40 sec PA V2 max: PI end-d chris: TR max chris: MV P1/2t-pr_phl: 110.6 cm/sec 127.2 cm/sec 255.2 cm/sec 119.8 msec PA max PG: TR max P.9 mmHg 26.0 mmHg Left Ventricle The left ventricle is normal in size. There is normal left ventricular wall thickness. No 'True apical 2 chmber viws' obtained.Hence cannot commentt on the apical and basal anterior wall and the apical and basal inferior martinez.The mid anterior , the mid inferior , and the rest of the LV martinez contract normally.LVEF in these limited views is normal at 65%. Doppler measurements suggest impaired left ventricular relaxation, which is associated with grade I/IV or mild diastolic dysfunction. There is no thrombus. No ASD ,VSD , or PFO seen. Right Ventricle The right ventricle is normal in size and function. Atria The right atrium is normal. The left atrial size is normal. Mitral Valve There is no evidence of mitral valve prolapse. There is no vegetation seen on the mitral valve. There is no mitral valve stenosis. There is a trace to mild amount of mitral regurgitation. Aortic Valve There is no aortic valvular vegetation. There is no aortic valve stenosis. There is no LVOT obstruction. No aortic regurgitation is present. Tricuspid Valve There is no tricuspid stenosis. There is a mild amount of tricuspid regurgitation. There is mild pulmonary hypertension by echo. VSP is 31 to 36 mm of Hg , with RA mean of 5 to 10. Pulmonic Valve The pulmonic valve is not well visualized. Great Vessels The aortic root is not well visualized. The inferior vena cava appeared normal and decreased > 50% with respiration (RAP 5-10 mmHg). Effusions There is no pericardial effusion. : CORINA GONZALEZ > Corina Gonzalez
--- NOTE | 2019-01-28 15:33 | EKG REPORT ---
SEVERITY:- NORMAL ECG - SINUS RHYTHM : Confirmed by: Corina Mcgarry MD 28-Jan-2019 15:32:12
--- NOTE | 2019-01-28 22:12 | PDOC CONSULTATION ---
Consultation-Blank Consultation: CARDIOLOGY CONSULTATION by Dr. Corina Mcgarry on 01/28/2019. Note initially patient was seen in the morning, and subsequently the patient was seen around 7:30 PM with the patient's family especially the son in the room. Formal consultation done at 7:30 PM on 01/28/2019. REASON FOR CONSULTATION: Preoperative cardiac risk assessment to the patient with history of coronary artery disease and history of prior SD, and hypertension. HISTORY OF PRESENT ILLNESS: As per the patient and patient's son the patient apparently got up suddenly and became very dizzy and had a fall. She had pain in the pelvis and in the right elbow was found to have a N fracture of the right upper extremity and also had nondisplaced pelvic fracture. The patient is for surgical repair of the other cranial fracture. The patient states she had no definite syncope. She has a history of syncope in the past which she said was worked up in [place] a few years ago with negative results. She has history of coronary artery disease and history of SD in the past x2 in the ER. Apparently she has not had undergone a cardiac catheterization. She was treated medically. The patient has not had recent anginal symptoms. There is no shortness of breath palpitations PND orthopnea wheezing. The patient does have mild dementia. She also has a history of hypertension. There is no palpitations or syncope this admission. There is no cough or wheezing or sputum production. PAST MEDICAL HISTORY: Is possible history of coronary artery disease history of SD x2 treated medically. There is no recent symptoms of angina. She has no history of congestive heart failure. No history of cardiac arrhythmia. No history of palpitations. No history of PND orthopnea or leg edema. No history of shortness of breath or oral wheezing or cough. She has no history of diabetes mellitus or thyroid disease. There is history of chronic kidney disease. There is no history of TIA CVA. She has a history of dementia. In spite of this she is able to answer questions with some degree of reliability. PAST SURGICAL HISTORY: Back surgery. ? Thoracic aortic surgery. ALLERGIES: No known allergies. FAMILY HISTORY: Is positive coronary artery disease and hypertension. SOCIAL HISTORY: The patient does not smoke. There is no history of EtOH abuse. DISPOSITION: The patient is a full code. Her son is her surrogate healthcare decision maker. REVIEW of SYSTEMS: CONSTITUTIONAL: Denies any fever chills or rigors. HEAD: Denies headaches or head injury. History of dizziness off and on especially when she gets up suddenly. EYES: No history of amblyopia diplopia. No history of amaurosis fugax. EARS: Complains of intermittent tinnitus. No vertigo. No hearing loss. NOSE: No history of hayfever. No nosebleeds. MOUTH: No history of altered taste sensation. No ulcers in the mouth. THROAT: No odynophagia or dysphagia. No recurrent sore throats. SKIN: No history of pruritus. No history of yellowish discoloration of the skin. No skin cancer. No psoriasis. NECK: No history of neck pain no history of swelling in the neck. LUNGS: No history of cough sputum production or wheezing. No history of asthma or COPD. No history of pulmonary embolism. No history of sleep apnea. No history of symptoms of upper or lower respiratory tract infection. HEART: History of coronary artery di history of SD into the 2 in the past. Treated medically. No recent symptoms of angina. No history of congestive heart failure. No history of palpitations. Past history of syncope. None recently this admission the fall was due to the patient's standing up suddenly and getting dizzy and having and also tripping and falling. No history of leg edema. No history of congestive heart failure. No history of rheumatic fever. GI: No history of GERD. No history of peptic ulcer disease. No history of GI bleed. No history of fatty food intolerance present. No history of yellowish discoloration of the skin. MUSCULOSKELETAL: History of chronic low back pain. No history of collagen vascular disease. RENAL: There is history of chronic kidney disease. Her baseline GFR is not known, at present it is 28 mL/min which is chronic disease stage III-IV. no symptoms a UTI. No history of hematuria pyuria or dysuria. ENDOCRINE: No history of diabetes mellitus or thyroid disease. No history of polydipsia polyuria. No history of heat or cold intolerance. ACCESS CONSULTANT: No history of TIA CVA. No history of headaches migraines or seizures. PSYCHIATRIC: History of dementia present but still seems appropriate at times. No history of suicidal ideation. No history of anxiety or depression. VASCULAR: No history of calf or buttock claudication. No history of DVT. HEMATOLOGICAL: No history of bleeding diathesis. No history of clotting disorders. PHYSICAL EXAMINATION: The patient appears to be a frail build. At present no ac nikolai distress. She is well-groomed. 01/28/19 19:27 Temperature 98.7 F Temperature Oral Source Pulse Rate 86 Respiratory 15 Rate Blood Pressure 154/60 H Blood Pressure 91 Mean BP Location Right Arm BP Position Supine O2 Sat by Pulse 99 Oximetry Oxygen Delivery Room Air Method HEAD: Head is atraumatic normocephalic. EYES: Tubes are equal round regular reactive to light accommodation. External ocular movements are normal. There is no conjunctival pallor. There is no scleral icterus. EARS: Tympanic membranes are intact. External auditory canals are clear. NOSE: There is no deviated nasal septum. There is no inflammation of the nasal mucous membrane. MOUTH: Mucous members of mouth are moist tongue is moist there is no ulcers. There is no bleeding from the gums. THROAT: There is no redness of the oropharynx. There is no exudates. SKIN: There is no skin rashes or skin lesions. There is no petechia or ecchymosis NECK: Is supple. There is no JVD. Carotids are equal there is no bruit. There is no lymphadenopathy. There is no goiter. There is no accessory muscle respiration use. Trachea central. LUNGS: Is clear to auscultation percussion without any rhonchi rales or wheezing. On palpation there is no chest wall tenderness. HEART: S1-S2 is heard there is no S3 gallop. There is no S4 gallop. There is systolic murmur left sternal border and the apex without radiation. There is no murmur of aortic stenosis or aortic regurgitation. There is no significant murmur of mitral regurgitation or tricuspid regurgitation. There is no rub. ABDOMEN: Is soft. Nontender. There is no hepatosplenomegaly. Bowel sounds are well heard. There is no tender areas masses. EXTREMITIES: Femorals are slightly diminished. There is no f emoral bruits. Leg pulses are diminished. There is no pedal edema. There is no DVT or cellulitis. There is no calf tenderness. . There is no cyanosis or clubbing. Capillary refill is normal. There is swelling of the right elbow. ACCESS CONSULTANT: Is the patient is conscious awake alert oriented x3 with no focal deficit. She is slightly confused at times. PSYCHIATRIC: The patient does not appear to be agitated or anxious. EKG: Sinus rhythm within normal limit. Current Medications Generic Name Dose Route Start Last Admin Trade Name Freq PRN Reason Stop Dose Admin Lactated Ringer's 1,000 mls @ 150 mls/hr 01/28/19 08:01 01/28/19 22:07 Lactated Ringers 1000 Ml Iv Soln IV 02/27/19 08:00 150 mls/hr CONTINUOUS PRN Administration THIS MED IS NOT "PRN" Morphine Sulfate 2 mg 01/28/19 08:34 01/28/19 18:09 Morphine 10 Mg/Ml Inj IV 02/04/19 08:33 2 mg Q2HP PRN Administration PAIN Ondansetron HCl 4 mg 01/28/19 08:02 Zofran Odt 4 Mg Tablet PO 02/27/19 08:01 Q6HP PRN FOR NAUSEA/VOMITING Discontinued Medications Generic Name Dose Route Start Last Admin Trade Name Freq PRN Reason Stop Dose Admin Morphine Sulfate 4 mg 01/27/19 10:31 01/27/19 11:19 Morphine 10 Mg/Ml Inj IV 01/27/19 10:32 4 mg NOW ONE Administration Morphine Sulfate 4 mg 01/27/19 20:11 01/27/19 20:22 Morphine 10 Mg/Ml Inj IV 01/27/19 20:12 4 mg NOW ONE Administration Morphine Sulfate 2 mg 01/27/19 21:47 Morphine 10 Mg/Ml Inj IV 02/03/19 21:46 Q2HP PRN FOR PAIN SCALE 3-5 HOME MEDICATIONS.: Amlodipine Besylate 5 mg PO DAILY 09/24/14 Losartan Potassium 100 mg PO DAILY 09/24/14 Metoprolol Tartrate [Lopressor 50 mg Tablet] 50 mg PO BID 09/24/14 Atorvastatin Calcium [Lipitor 40 mg Tablet] 40 mg PO QHS 01/27/19 Labs- Entire Visit 01/27/19 01/27/19 01/27/19 07:50 07:50 07:50 WBC 14.0 H RBC 3.43 L Hgb 11.0 L Hct 32.1 L MCV 94 MCH 31.9 MCHC 34.1 RDW 15.0 H Plt Count 222 Seg Neutrophils % 87.9 H Lymphocytes % 5.7 L Monocytes % 5.8 Eosinophils % 0.4 Basophils % 0.2 Absolute Neutrophils 12.3 H Absolute Lymphocytes 0.8 Absolute Monocytes 0.8 Absolute Eosinophils 0.1 Absolute Basophils 0.0 PT INR APTT Sodium 135.3 L Potassium 4.0 Chloride 102 Carbon Dioxide 28 Anion Gap 5 BUN 18 Creatinine 0.88 Est GFR ( Amer) > 60 Est GFR (Non-Af Amer) > 60 Glucose 178 H Calcium 9.4 Total Bilirubin 1.0 Direct Bilirubin 0.4 Neonat Total Bilirubin Not Reportable Neonat Direct Bilirubin Not Reportable Neonat Indirect Bili Not Reportable AST 52 H ALT 28 Alkaline Phosphatase 209 H Troponin I < 0.012 Total Protein 8.0 Albumin 3.7 01/28/19 01/28/19 01/28/19 08:15 08:15 08:15 WBC 10.0 RBC 3.03 L Hgb 9.8 L Hct 28.2 L MCV 93 MCH 32.4 MCHC 34.9 RDW 14.8 H Plt Count 185 Seg Neutrophils % Lymphocytes % Monocytes % Eosinophils % Basophils % Absolute Neutrophils Absolute Lymphocytes Absolute Monocytes Absolute Eosinophils Absolute Basophils PT 15.7 H INR 1.19 APTT 38.6 H Sodium 134.4 L Potassium 4.3 Chloride 99 Carbon Dioxide 27 Anion Gap 8 BUN 31 H Creatinine 1.77 H Est GFR ( Amer) 34 L Est GFR (Non-Af Amer) 28 L Glucose 146 H Calcium 8.9 Total Bilirubin Direct Bilirubin Neonat Total Bilirubin Neonat Direct Bilirubin Neonat Indirect Bili AST ALT Alkaline Phosphatase Troponin I Total Protein Albumin Hip/Pelvis X-Ray 01/27/19 00:00 IMPRESSION: Osteopenia with moderate degenerative change copyright 2011 [employer]- All Rights Reserved Cervical Spine CT 01/27/19 07:12 IMPRESSION: No fracture or static subluxation of the cervical spine. Elbow X-Ray 01/27/19 07:12 IMPRESSION: Transversely oriented displaced fracture through the olecranon with 2 cm of associated distraction. Moderate associated joint effusion. Head CT 01/27/19 07:12 IMPRESSION: CHRONIC CHANGES OF ATROPHY AND MICROVASCULAR ISCHEMIA. NO ACUTE PROCESS. EVIDENCE OF ACUTE STROKE: NO. Pelvis CT 01/27/19 07:12 IMPRESSION: 1. Multiple multiple pelvic fractures including: - minimally displaced fracture of the posterior right iliac crest extending to the sacroiliac joint. - small fracture along the right anterior sacral ala. - comminuted fracture of the left superior pubic ramus extending to the pubic symphysis. - fracture of the right superior pubic ramus adjacent to the acetabulum without definite acetabular extension. - bilateral mildly displaced inferior pubic rami fractures. 2. Associated pelvic hematoma adjacent to the pubic symphysis as above. 3. Osteopenia. Chest X-Ray 01/27/19 07:13 IMPRESSION: No evidence of acute cardiopulmonary process. Chest X-Ray 01/28/19 00:00 IMPRESSION: NO ACUTE RADIOGRAPHIC FINDING IN THE CHEST. Echocardiogram: Note No "to 2 Chamber Apical Views Obtained", and Hence Cannot Comment on the Apical and Basal Anterior, and the Basal Apical Inferior Wall. The Mid Inferior Wall, the Mid Anterior Wall and the Rest of the LV Mitchell Contract Normally in the LV Ejection Fraction Is Normal and Greater Than 65%. There Is Trace to Mild Mitral Regurgitation. There Is Mild tricuspid regurgitation with very mild pulmonary hypertension.. There is no aortic stenosis or aortic regurgitation. There is no pericardial effusion. Echo findings discussed with the patient the patient's son and family. IMPRESSIONS/RECOMMENDATION: 1. Status post accidental fall with fracture of the pelvis and right olecranion process. Patient for surgical repair of the right elbow fracture. 2. Coronary artery disease: History of SD x2 in the past. No recent anginal symptoms. Normal LV ejection Fraction by echocardiogram and normal EKG: Recommend continue the patient on beta-lopez and aspirin. Recommend placing the patient on telemetry monitoring 3. Hypertension: Slightly elevated most likely due to pain due to the fractures. Would recommend continue the patient's amlodipine and RYAN inhibitor. 4. Hyperlipidemia: Continue statins. 5. Chronic kidney disease stage III-IV 6. Preoperative cardiac risk assessment. [Encounter for preprocedural cardiovascular examination]. Note that the patient be an acceptable risk for the surgery. Would recommend monitoring the patient on telemetry perioperatively, and postoperatively get serial EKGs and enzymes, and continue telemetry monitoring. This has been discussed with the patient son and the patient and patient's family. They are aware that there is always a risk of SD, CHF, arrhythmias or other untoward adverse cardiovascular events. Medical decision making is of high complexity. Management plan discussed with attending physician. Will follow. 60 minutes spent on this patient with more than 50% of time spent in direct patient care.
[2019-01-29] MEDS ORDERED: CEFAZOLIN 2 GM/D5W RTU 2 GM/50 ML RTUPB IV PRN (05:04)
[2019-01-29] MEDS ORDERED: CEFAZOLIN INJ 1 GM VIAL ONE (07:18)
[2019-01-29] MEDS ORDERED: LIDOCAINE 2% INJ-PF (100 MG/5 ML) SYRINGE ONE (07:22)
[2019-01-29] MEDS ORDERED: HYDROMORPHONE HCL INJ/PF 2 MG/ML AMPULE ONE (07:23)
[2019-01-29] MEDS ORDERED: MIDAZOLAM 2 MG/2 ML INJ ONE (07:23)
[2019-01-29] MEDS ORDERED: ACETAMINOPHEN 1,000 MG/100 ML RTUPB IV ONE (07:23)
[2019-01-29] MEDS ORDERED: ONDANSETRON HCL INJ/PF 4 MG/2 ML SDV ONE (07:23)
[2019-01-29] MEDS ORDERED: DEXAMETHASONE SOD PHOSPHATE INJ 4 MG/1 ML VIAL ONE (07:23)
[2019-01-29] MEDS ORDERED: PROPOFOL INJ 200 MG/20 ML VIAL IV ONE (07:23)
[2019-01-29] MEDS ORDERED: ONDANSETRON HCL INJ/PF 4 MG/2 ML SDV IV PRN (08:25)
[2019-01-29] MEDS ORDERED: PROMETHAZINE HCL INJ 25 MG/1 ML VIAL IV PRN (08:25)
[2019-01-29] MEDS ORDERED: MEPERIDINE HCL/PF INJ 25 MG/1 ML DISP.SYRIN IV PRN (08:25)
[2019-01-29] MEDS ORDERED: DIPHENHYDRAMINE HCL 50 MG/ML VIAL IV PRN (08:25)
[2019-01-29] MEDS ORDERED: FENTANYL CITRATE INJ/PF 100 MCG/2 ML AMPUL IV PRN ×3 (08:25)
[2019-01-29] MEDS ORDERED: OXYCODONE-ACETAMINOPHEN 5-325 MG TABLET PO PRN ×2 (08:25→08:55)
--- NOTE | 2019-01-29 08:35 | Operative Report ---
Operative Report DATE OF SURGERY: 01/29/19 PREOPERATIVE DIAGNOSIS: Right olecranon fracture OPERATION: Open reduction internal fixation right olecranon fracture SURGEON: RACHAEL ALBARADO ANESTHESIA: GA ESTIMATED BLOOD LOSS: 25 PROCEDURE: With the patient in a semi-left lateral decubitus position the right upper extremities prepped and draped in sterile fashion. Limb was elevated for exsanguination tourniquet inflated 280 torr. A longitudinal incision was made over the olecranon and sharp dissection was used to carry the incision to the periosteum. The periosteum was elevated revealing underlying fracture. The fracture hematoma is evacuated from the fracture site using bulb lavage. The fracture was then reduced under direct visualization using a large tenaculum. The fracture reduction was checked using fluoroscopy and felt to be adequate. Subsequently a [place] titanium olecranon plate is applied and secured with 3 screws proximally and 4 screws distally. Fracture reduction and hardware placement checked fluoroscopically and felt to be adequate. At this point the tourniquet is deflated. The wound was irrigated with bulb lavage. Hemostasis obtained with electrocautery. The wound was closed with interrupted Vicryl followed by trudi. A sterile compressive dressing was applied and patient's return to the PACU in satisfactory condition.
--- NOTE | 2019-01-29 09:57 | RADIOLOGY REPORT (SQ) ---
EXAM DESCRIPTION: ELBOW RIGHT AP/LAT; NO CHG FLUORO COMPLETED DATE/TIME: 01/29/2019 9:18 am REASON FOR STUDY: ORIF RIGHT ELBOW COMPARISON: 01/27/2019 FLUOROSCOPY TIME: 0.1 minutes 2 digital C-arm images saved to PACS. TECHNIQUE: Intra-operative images acquired during surgical procedure to evaluate progress. NUMBER OF IMAGES: 2 digital C-arm images LIMITATIONS: None. FINDINGS: 2 digital C-arm images are submitted post ORIF of a right olecranon fracture in good align ment. Please see the operative report. IMPRESSION: Intra procedural imaging and fluoro COMMENT: Quality ID [id number]: Final reports for procedures using fluoroscopy that document radiation exp osure indices, or exposure time and number of fluorographic images (if radiation exposure indices are not available) Please consult full operative report of the attending physician for description of the procedure. TECHNICAL DOCUMENTATION: JOB ID: [id number] [employer]- All Rights Reserved Reading location - IP/workstation name: [email or web address]
--- NOTE | 2019-01-29 09:57 | RADIOLOGY REPORT (SQ) ---
EXAM DESCRIPTION: ELBOW RIGHT AP/LAT; NO CHG FLUORO COMPLETED DATE/TIME: 01/29/2019 9:18 am REASON FOR STUDY: ORIF RIGHT ELBOW COMPARISON: 01/27/2019 FLUOROSCOPY TIME: 0.1 minutes 2 digital C-arm images saved to PACS. TECHNIQUE: Intra-operative images acquired during surgical procedure to evaluate progress. NUMBER OF IMAGES: 2 digital C-arm images LIMITATIONS: None. FINDINGS: 2 digital C-arm images are submitted post ORIF of a right olecranon fracture in good align ment. Please see the operative report. IMPRESSION: Intra procedural imaging and fluoro COMMENT: Quality ID [id number]: Final reports for procedures using fluoroscopy that document radiation exp osure indices, or exposure time and number of fluorographic images (if radiation exposure indices are not available) Please consult full operative report of the attending physician for description of the procedure. TECHNICAL DOCUMENTATION: JOB ID: [id number] [employer]- All Rights Reserved Reading location - IP/workstation name: [email or web address]
[2019-01-29] MEDS ORDERED: MORPHINE SULFATE 10 MG/ML INJ IV PRN (10:00)
[2019-01-29] MEDS ORDERED: AMLODIPINE BESYLATE 5 MG TABLET PO SCH (10:00)
[2019-01-29] MEDS ORDERED: METOPROLOL TARTRATE 50 MG TABLET PO SCH (10:00)
[2019-01-29] MEDS ORDERED: LOSARTAN POTASSIUM 50 MG TABLET PO SCH (10:00)
[2019-01-29] MEDS: ASPIRIN 81 MG TABLET, ENT COATED PO SCH (11:05)
[2019-01-29 12:47] LABS: CREATINE KINASE MB 2.09 ng/mL (<4.55); TROPONIN I < 0.012 ng/mL
[2019-01-29] MEDS: CEFAZOLIN SODIUM 2 GM in DEXTROSE 5%-WATER 100 ML IV SCH ×2 (13:32→21:57)
[2019-01-29] MEDS ORDERED: SUCCINYLCHOLINE CHLORIDE INJ 200 MG/10 ML VIAL ONE (14:13)
[2019-01-29 17:34] LABS: CREATINE KINASE MB 2.61 ng/mL (<4.55)
[2019-01-29 17:35] LABS: TROPONIN I < 0.012 ng/mL
[2019-01-29] MEDS: OXYCODONE-ACETAMINOPHEN 5-325 MG TABLET PO PRN (17:50)
--- NOTE | 2019-01-29 20:29 | Progress Note ---
Provider Note Provider Note: CARDIOLOGY PROGRESS NOTE by Dr. Corina Mcgarry on 01/29/2019. SUBJECTIVE: The patient had a surgery and is come back. Surgical pain is well controlled. She denies any chest pain or discomfort. There is no shortness of breath cough wheezing or pleuritic chest pain. There is no PND orthopnea. There is no leg edema. There is no arrhythmia seen on the monitor. There is no TIA CVA symptoms. On examination the patient is a frail build. In no acute distress. She is well-groomed. Selected Entries 01/29/19 11:15 Temperature 98.0 F Pulse Rate 75 Respiratory 18 Rate Blood Pressure 151/77 H O2 Sat by Pulse 99 Oximetry Oxygen Delivery Nasal Cannula Method ( includes room air) Oxygen Flow 1.5 Rate HEAD: Head is atraumatic normocephalic. EYES: Tubes are equal round regular reactive to light accommodation. External ocular movements are normal. There is no conjunctival pallor. There is no scleral icterus. EARS: Tympanic membranes are intact. External auditory canals are clear. NOSE: There is no deviated nasal septum. There is no inflammation of the nasal mucous membrane. MOUTH: Mucous members of mouth are moist tongue is moist there is no ulcers. There is no bleeding from the gums. THROAT: There is no redness of the oropharynx. There is no exudates. SKIN: There is no skin rashes or skin lesions. There is no petechia or ecchymosis NECK: Is supple. There is no JVD. Carotids are equal there is no bruit. There is no lymphadenopathy. There is no goiter. There is no accessory muscle respiration use. Trachea central. LUNGS: Is clear to auscultation percussion without any rhonchi rales or wheezing. On palpation there is no chest wall tenderness. HEART: S1-S2 is heard there is no S3 gallop. There is no S4 gallop. There is systolic murmur left sternal border and the apex without radiation. There is no murmur of aortic stenosis or ao rtic regurgitation. There is no significant murmur of mitral regurgitation or tricuspid regurgitation. There is no rub. ABDOMEN: Is soft. Nontender. There is no hepatosplenomegaly. Bowel sounds are well heard. There is no tender areas masses. EXTREMITIES: Femorals are slightly diminished. There is no femoral bruits. Leg pulses are diminished. There is no pedal edema. There is no DVT or cellulitis. There is no calf tenderness. . There is no cyanosis or clubbing. Capillary refill is normal. There is swelling of the right elbow. CHECK OUT CASHIER: Is the patient is conscious awake alert oriented x3 with no focal deficit. She is slightly confused at times. PSYCHIATRIC: The patient does not appear to be agitated or anxious. 01/28/19 08:15 WBC 10.0 RBC 3.03 L Hgb 9.8 L Hct 28.2 L MCV 93 MCH 32.4 MCHC 34.9 RDW 14.8 H Plt Count 185 01/27/19 01/28/19 01/29/19 07:50 08:15 11:13 Sodium 134.4 L Potassium 4.3 Chloride 99 Carbon Dioxide 27 Anion Gap 8 BUN 31 H Creatinine 1.77 H Est GFR (Non-Af Amer) 28 L Glucose 146 H Calcium 8.9 Creatine Kinase 186 H Troponin I < 0.012 01/29/19 11:13 Sodium Potassium Chloride Carbon Dioxide Anion Gap BUN Creatinine Est GFR (Non-Af Amer) Glucose Calcium Creatine Kinase Troponin I < 0.012 IMPRESSIONS/RECOMMENDATION: 1. Status post accidental fall with fracture of the pelvis and right olecranion process. Patient is immediate postop surgical repair of the right elbow fracture. 2. Coronary artery disease: History of [place] x2 in the past. No recent anginal symptoms. Normal LV ejection Fraction by echocardiogram and normal EKG: Recommend continue the patient on beta-lopez and aspirin. Recommend placing the patient on telemetry monitoring. The patient has no anginal symptoms and her troponin is negative. We will recheck the patient's EKG in the a.m. 3. Hypertension: Slightly elevated most likely due to pain due to the fractures. Would recommend continue the patient's amlodipine and RYAN inhibitor. 4. Hyperlipidemia: Continue statins. 5. Chronic kidney disease stage III-IV Medications reviewed. Management plan discussed with attending physician on the case. Discussed with the patient's son about the lab tests so far. Abdomen further management plans. Medical decision making is of moderate complexity. 40 minutes spent on this patient more than 50% of time spent in direct patient care. We will recheck the patient's EKG and troponin I in the morning. Will follow.
[2019-01-29] MEDS ORDERED: ATORVASTATIN CALCIUM 40 MG TABLET PO SCH (22:00)
[2019-01-30 01:54] LABS: CREATINE KINASE MB 2.83 ng/mL (<4.55)
[2019-01-30 01:58] LABS: TROPONIN I < 0.012 ng/mL
[2019-01-30] MEDS: OXYCODONE-ACETAMINOPHEN 5-325 MG TABLET PO PRN ×2 (03:35→10:11)
[2019-01-30 07:39] LABS: BLOOD UREA NITROGEN 24 mg/dL (7-20); CALCIUM 8.3 mg/dL (8.4-10.2); CARBON DIOXIDE 26 mmol/L (22-30); CHLORIDE 105 mmol/L (98-107); GLUCOSE 139 mg/dL (75-110); POTASSIUM 4.4 mmol/L (3.6-5.0); SODIUM 135.4 mmol/L (137-145)
[2019-01-30 07:43] LABS: HEMATOCRIT 22.1 % (36.0-47.0); MEAN CORPUSCULAR HEMOGLOBIN 31.5 pg (27.0-33.4); MEAN CORPUSCULAR VOLUME 93 fl (80-97); PLATELET COUNT 176 10^3/uL (150-450); RED BLOOD COUNT 2.38 10^6/uL (3.72-5.28); WHITE BLOOD COUNT 15.1 10^3/uL (4.0-10.5)
[2019-01-30 07:50] LABS: ANION GAP 4 (5-19)
[2019-01-30 08:06] LABS: HEMOGLOBIN 7.5 g/dL (12.0-15.5)
[2019-01-30] MEDS ORDERED: NORMAL SALINE 250 ML IV PRN (08:09)
--- NOTE | 2019-01-30 08:37 | PDOC PROGRESS REPORT ---
Subjective Progress Note for:: 01/30/19 Reason For Visit: FRACTURE OF THE RIGHT OLECRANON PROCESS 78-year-old female now postop day 1 status post open reduction internal fixation of a right olecranon fracture. Patient day 3 status post fall with nondisplaced pelvic fracture and subsequent hematoma. Physical Exam Vital Signs: Temp Pulse Resp BP Pulse Ox 36.8 C 82 18 173/66 H 98 01/30/19 08:00 01/30/19 08:00 01/30/19 08:00 01/30/19 08:00 01/30/19 08:00 Intake & Output 01/29/19 01/30/19 01/31/19 06:59 06:59 06:59 Intake Total 1222 3590 Output Total 50 10 Balance 1172 3580 Weight 67.9 kg 68.1 kg Physical Exam: Elderly white female sitting up in bed eating breakfast. General appearance: PRESENT: no acute distress, mild distress Head exam: PRESENT: normocephalic Respiratory exam: PRESENT: unlabored Cardiovascular exam: PRESENT: RRR Vascular exam: PRESENT: normal capillary refill GI/Abdominal exam: PRESENT: soft Rectal exam: PRESENT: deferred Extremities exam: PRESENT: other - Right upper extremity in a dressing with limited active range of motion. Brisk capillary refill in each of the digits. Neurological exam: PRESENT: alert, awake, oriented to place, oriented to situation Skin exam: PRESENT: dry, intact, warm. ABSENT: cyanosis, rash Results Laboratory Results: 01/30/19 06:45 01/30/19 06:45 01/30/19 01/30/19 06:45 06:45 WBC 15.1 H RBC 2.38 L Hgb 7.5 L D Hct 22.1 L MCV 93 MCH 31.5 MCHC 34.0 RDW 15.0 H Plt Count 176 Sodium 135.4 L Potassium 4.4 Chloride 105 Carbon Dioxide 26 Anion Gap 4 L BUN 24 H Creatinine 1.01 Est GFR ( Amer) > 60 Est GFR (Non-Af Amer) 53 L Glucose 139 H Calcium 8.3 L 01/27/19 01/29/19 01/29/19 07:50 11:13 11:13 Creatine Kinase 186 H CK-MB (CK-2) 2.09 Troponin I < 0.012 < 0.012 01/29/19 01/29/1901/30/19 16:43 16:43 00:47 Creatine Kinase 191 H 185 H CK-MB (CK-2) 2.61 Troponin I < 0.012 01/30/19 01/30/19 00:47 06:45 Creatine Kinase CK-MB (CK-2) 2.83 Troponin I < 0.012 < 0.012 Impressions: Hip/Pelvis X-Ray 01/27/19 00:00 IMPRESSION: Osteopenia with moderate degenerative change copyright 2011 [employer]- All Rights Reserved Cervical Spine CT 01/27/19 07:12 IMPRESSION: No fracture or static subluxation of the cervical spine. Head CT 01/27/19 07:12 IMPRESSION: CHRONIC CHANGES OF ATROPHY AND MICROVASCULAR ISCHEMIA. NO ACUTE PROCESS. EVIDENCE OF ACUTE STROKE: NO. Pelvis CT 01/27/19 07:12 IMPRESSION: 1. Multiple multiple pelvic fractures including: - minimally displaced fracture of the posterior right iliac crest extending to the sacroiliac joint. - small fracture along the right anterior sacral ala. - comminuted fracture of the left superior pubic ramus extending to the pubic symphysis. - fracture of the right superior pubic ramus adjacent to the acetabulum without definite acetabular extension. - bilateral mildly displaced inferior pubic rami fractures. 2. Associated pelvic hematoma adjacent to the pubic symphysis as above. 3. Osteopenia. Chest X-Ray 01/28/19 00:00 IMPRESSION: NO ACUTE RADIOGRAPHIC FINDING IN THE CHEST. Elbow X-Ray 01/29/19 00:00 IMPRESSION: Intra procedural imaging and fluoro Fluoroscopy 01/29/19 00:00 IMPRESSION: Intra procedural imaging and fluoro Status: Imported from PACS Assessment & Plan - Diagnosis (1) Fracture of right olecranon process Qualifiers: Encounter type: initial encounter Fracture type: closed Qualified Code(s): S52.021A - Displaced fracture of olecranon process without intraarticular extension of right ulna, initial encounter for closed fracture Is this a current diagnosis for this admission?: Yes Plan: Status post ORIF. Activity as tolerated. (2) Multiple pelvic fractures Qualifiers: Encounter type: initial encounter Fracture type: closed Fracture alignment: without disruption of pelvic ring Qualified Code(s): S32.82XA - Multiple fractures of pelvis without disruption of pelvic ring, initial encounter for closed fracture Is this a current diagnosis for this admission?: Yes Plan: Out of bed to chair. Weightbearing as tolerated. - Time Time Spent with patient: 15-24 minutes Anticipated discharge: SNF Within: when bed available - Plan Summary Plan Summary: Anticipate the need for custodial facility placement.
[2019-01-30] MEDS: ASPIRIN 81 MG TABLET, ENT COATED PO SCH (10:11)
--- NOTE | 2019-01-30 13:00 | Progress Note ---
Provider Note Provider Note: Cardiology progress note by Dr. Corina Mcgarry on 01/30/2019. SUBJECTIVE: The patient denies any chest pain or discomfort. Her surgical pain in the right elbow is well controlled. The patient's hemoglobin is dropped to 7.5. She has no anginal symptoms. There is no PND orthopnea. There is no shortness of breath. There is no cough or sputum production. There is no arrhythmia seen on the monitor. The patient's EKG is within normal limits. The patient is getting 2 units of packed RBCs. PHYSICAL EXAMINATION: The patient is well-built and well-nourished in no acute distress. For unknown reason low amlodipine, her metoprolol, and her losartan are not seen on the MAR. Will reorder them. Selected Entries 01/30/19 08:00 Temperature 98.3 F Temperature Oral Source Pulse Rate 82 Respiratory 18 Rate Blood Pressure 173/66 H [Right 1] Blood Pressure 101 Mean [Right 1] Blood Pressure Sitting Position [Right 1] O2 Sat by Pulse 98 Oximetry Oxygen Delivery Room Air Method ( includes room air) HEAD: Head is atraumatic normocephalic. EYES: Tubes are equal round regular reactive to light accommodation. External ocular movements are normal. There is no conjunctival pallor. There is no scleral icterus. EARS: Tympanic membranes are intact. External auditory canals are clear. NOSE: There is no deviated nasal septum. There is no inflammation of the nasal mucous membrane. MOUTH: Mucous members of mouth are moist tongue is moist there is no ulcers. There is no bleeding from the gums. THROAT: There is no redness of the oropharynx. There is no exudates. SKIN: There is no skin rashes or skin lesions. There is no petechia or ecchymosis NECK: Is supple. There is no JVD. Carotids are equal there is no bruit. There is no lymphadenopathy. There is no goiter. There is no accessory muscle respiration use. Trachea central. LUNGS: Is clear to auscultation percussion without any rhonchi rales or wheezing. On palpation there is no chest wall tenderness. HEART: S1-S2 is heard there is no S3 gallop. There is no S4 gallop. There is systolic murmur left sternal border and the apex without radiation. There is no murmur of aortic stenosis or aortic regurgitation. There is no significant murmur of mitral regurgitation or tricuspid regurgitation. There is no rub. ABDOMEN: Is soft. Nontender. There is no hepatosplenomegaly. Bowel sounds are well heard. There is no tender areas masses. EXTREMITIES: Femorals are slightly diminished. There is no femoral bruits. Leg pulses are diminished. There is no pedal edema. There is no DVT or cellulitis. There is no calf tenderness. . There is no cyanosis or clubbing. Capillary refill is normal. There is swelling of the right elbow. 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 She is slightly confused at times. PSYCHIATRIC: The patient does not appear to be agitated or anxious. The patient is EKG: Sinus rhythm within normal limits. Labs- All tests 24 hr 01/29/19 01/29/19 01/30/19 16:43 16:43 00:47 WBC RBC Hgb Hct MCV MCH MCHC RDW Plt Count Sodium Potassium Chloride Carbon Dioxide Anion Gap BUN Creatinine Est GFR ( Amer) Est GFR (Non-Af Amer) Glucose Calcium Creatine Kinase 191 H 185 H CK-MB (CK-2) 2.61 Troponin I < 0.012 Blood Type Blood Type Confirm Antibody Screen Crossmatch 01/30/19 01/30/19 01/30/19 00:47 06:25 06:45 WBC RBC Hgb Hct MCV MCH MCHC RDW Plt Count Sodium Potassium Chloride Carbon Dioxide Anion Gap BUN Creatinine Est GFR ( Amer) Est GFR (Non-Af Amer) Glucose Calcium Creatine Kinase CK-MB (CK-2) 2.83 Troponin I < 0.012 < 0.012 Blood Type Blood Type Confirm A POSITIVE Antibody Screen Crossmatch 01/30/19 01/30/19 01/30/19 06:45 06:45 09:19 WBC 15.1 H RBC 2.38 L Hgb 7.5 L D Hct 22.1 L MCV 93 MCH 31.5 MCHC 34.0 RDW 15.0 H Plt Count 176 Sodium 135.4 L Potassium 4.4 Chloride 105 Carbon Dioxide 26 Anion Gap 4 L BUN 24 H Creatinine 1.01 Est GFR ( Amer) > 60 Est GFR (Non-Af Amer) 53 L Glucose 139 H Calcium 8.3 L Creatine Kinase CK-MB (CK-2) Troponin I Blood Type A POSITIVE Blood Type Confirm Antibody Screen NEGATIVE Crossmatch See Detail Hip/Pelvis X-Ray 01/27/19 00:00 IMPRESSION: Osteopenia with moderate degenerative change copyright 2010 [employer]- All Rights Reserved Cervical Spine CT 01/27/19 07:12 IMPRESSION: No fracture or static subluxation of the cervical spine. Elbow X-Ray 01/27/19 07:12 IMPRESSION: Transversely oriented displaced fracture through the olecranon with 2 cm of associated distraction. Moderate associated joint effusion. Head CT 01/27/19 07:12 IMPRESSION: CHRONIC CHANGES OF ATROPHY AND MICROVASCULAR ISCHEMIA. NO ACUTE PROCESS. EVIDENCE OF ACUTE STROKE: NO. Pelvis CT 01/27/19 07:12 IMPRESSION: 1. Multiple multiple pelvic fractures including: - minimally displaced fracture of the posterior right iliac crest extending to the sacroiliac joint. - small fracture along the right anterior sacral ala. - comminuted fracture of the left superior pubic ramus extending to the pubic symphysis. - fracture of the right superior pubic ramus adjacent to the acetabulum without definite acetabular extension. - bilateral mildly displaced inferior pubic rami fractures. 2. Associated pelvic hematoma adjacent to the pubic symphysis as above. 3. Osteopenia. Chest X-Ray 01/27/19 07:13 IMPRESSION: No evidence of acute cardiopulmonary process. Chest X-Ray 01/28/19 00:00 IMPRESSION: NO ACUTE RADIOGRAPHIC FINDING IN THE CHEST. Elbow X-Ray 01/29/19 00:00 IMPRESSION: Intra procedural imaging and fluoro Fluoroscopy 01/29/19 00:00 IMPRESSION: Intra procedural imaging and fluoro IMPRESSIONS/RECOMMENDATION: 1. Anemia: Agree with transfusing the patient, and would recommend keeping the patient's hemoglobin 10 or above. 2.Status post accidental fall with fracture of the pelvis and right olecranion process. Patient is immediate postop surgical repair of the right elbow fracture. 3. Coronary artery disease: History of [place] x2 in the past. No recent anginal symptoms. Normal LV ejection Fraction by echocardiogram and normal EKG: Recommend continue the patient on beta-lopez and aspirin. Recommend placing the patient on telemetry monitoring. The patient has no anginal symptoms and her troponin is negative. We will recheck the patient's EKG in the a.m. 4. Hypertension: Slightly elevated most likely due to pain due to the fractures. Would recommend continue the patient's amlodipine and RYAN inhibitor. 5. Hyperlipidemia: Continue statins. 6. Chronic kidney disease stage III-IV Medications reviewed. Management plan discussed with attending physician on the case. Discussed with the patient's son about the lab tests so far. Abdomen further management plans. Medical decision making is of moderate complexity. 40 minutes spent on this patient more than 50% of time spent in direct patient care. Discussed the lab findings and the need for transfusion with the patient's [id number], with the patient's consent. Also discussed with the [id number] that the patient's EKG is normal, and the troponin rise are within normal limits. Will follow.
[2019-01-30] MEDS: ACETAMINOPHEN 325 MG TABLET PO PRN (13:19)
--- NOTE | 2019-01-30 21:01 | EKG REPORT ---
SEVERITY:- NORMAL ECG - SINUS RHYTHM : Confirmed by: Corina Mcgarry MD 30-Jan-2019 21:00:41
[2019-01-30] MEDS: LOSARTAN POTASSIUM 50 MG TABLET PO SCH (23:21)
[2019-01-30] MEDS: ATORVASTATIN CALCIUM 40 MG TABLET PO SCH (23:21)
[2019-01-30] MEDS: METOPROLOL TARTRATE 50 MG TABLET PO SCH (23:21)
[2019-01-30] MEDS: AMLODIPINE BESYLATE 5 MG TABLET PO SCH (23:22)
[2019-01-31 04:22] LABS: ABSOLUTE BASOPHILS # (AUTO) 0.1 10^3/uL (0.0-0.2); ABSOLUTE LYMPHOCYTES (AUTO) 1.4 10^3/uL (0.5-4.7); ABSOLUTE MONOCYTES (AUTO) 1.5 10^3/uL (0.1-1.4); ABSOLUTE NEUT (AUTO) 9.5 10^3/uL (1.7-8.2); BASOPHILS % (AUTO) 0.4 % (0-2); EOSINOPHILS % (AUTO) 0.3 % (0-6); HEMATOCRIT 31.7 % (36.0-47.0); LYMPHOCYTES % (AUTO) 11.1 % (13-45); MEAN CORPUSCULAR HEMOGLOBIN 31.9 pg (27.0-33.4); MEAN CORPUSCULAR HGB CONC 34.9 g/dL (32.0-36.0); MEAN CORPUSCULAR VOLUME 91 fl (80-97); MONOCYTES % (AUTO) 12.1 % (3-13); PLATELET COUNT 210 10^3/uL (150-450); RED BLOOD COUNT 3.47 10^6/uL (3.72-5.28); SEGMENTED NEUTROPHILS % (AUTO) 76.1 % (42-78); TOTAL CELLS COUNTED % (AUTO) 100 %; WHITE BLOOD COUNT 12.5 10^3/uL (4.0-10.5)
[2019-01-31 04:25] LABS: HEMOGLOBIN 11.1 g/dL (12.0-15.5)
[2019-01-31] MEDS: OXYCODONE-ACETAMINOPHEN 5-325 MG TABLET PO PRN (08:54)
[2019-01-31] MEDS: AMLODIPINE BESYLATE 5 MG TABLET PO SCH ×2 (10:09→22:21)
[2019-01-31] MEDS: ASPIRIN 81 MG TABLET, ENT COATED PO SCH (10:09)
[2019-01-31] MEDS: METOPROLOL TARTRATE 50 MG TABLET PO SCH ×2 (10:09→22:21)
[2019-01-31] MEDS: LOSARTAN POTASSIUM 50 MG TABLET PO SCH ×2 (10:09→22:21)
[2019-01-31 10:54] LABS: ANION GAP 5 (5-19); BLOOD UREA NITROGEN 18 mg/dL (7-20); CALCIUM 8.7 mg/dL (8.4-10.2); CARBON DIOXIDE 29 mmol/L (22-30); CHLORIDE 102 mmol/L (98-107); GLUCOSE 107 mg/dL (75-110); POTASSIUM 4.5 mmol/L (3.6-5.0); SODIUM 135.9 mmol/L (137-145)
--- NOTE | 2019-01-31 12:05 | Progress Note ---
Provider Note Provider Note: CARDIOLOGY PROGRESS NOTE by Dr. Corina Mcgarry on 01/31/2019. SUBJECTIVE: The patient denies any chest pain or discomfort. There is no PND orthopnea. Her hemoglobin is come up to 11.1 after transfusion. There is no shortness of breath. There is no wheezing. Her renal functions have normalized. There is no PND orthopnea or palpitations. There is no arrhythmia seen on the monitor. There is no TIA CVA symptoms. PHYSICAL EXAMINATION: The patient is well-built and well-nourished. At present in no acute distress. Selected Entries 01/31/19 08:00 Temperature 98.7 F Temperature Oral Source Pulse Rate 87 Respiratory 18 Rate Blood Pressure 184/80 H [Right 1] Blood Pressure 114 Mean [Right 1] Blood Pressure Sitting Position [Right 1] O2 Sat by Pulse 100 Oximetry Oxygen Delivery Room Air Method ( includes room air) HEAD: Head is atraumatic normocephalic. EYES: Tubes are equal round regular reactive to light accommodation. External ocular movements are normal. There is no conjunctival pallor. There is no scleral icterus. EARS: Tympanic membranes are intact. External auditory canals are clear. NOSE: There is no deviated nasal septum. There is no inflammation of the nasal mucous membrane. MOUTH: Mucous members of mouth are moist tongue is moist there is no ulcers. There is no bleeding from the gums. THROAT: There is no redness of the oropharynx. There is no exudates. SKIN: There is no skin rashes or skin lesions. There is no petechia or ecchymosis NECK: Is supple. There is no JVD. Carotids are equal there is no bruit. There is no lymphadenopathy. There is no goiter. There is no accessory muscle respiration use. Trachea central. LUNGS: Is clear to auscultation percussion without any rhonchi rales or wheezing. On palpation there is no chest wall tenderness. HEART: S1-S2 is heard there is no S3 gallop. There is no S4 gallop. There is systolic murmur left sternal border and the apex without radiation. There is no murmur of aortic stenosis or aortic regurgitation. There is no significant murmur of mitral regurgitation or tricuspid regurgitation. There is no rub. ABDOMEN: Is soft. Nontender. There is no hepatosplenomegaly. Bowel sounds are well heard. There is no tender areas masses. EXTREMITIES: Femorals are slightly diminished. There is no femoral bruits. Leg pulses are diminished. There is no pedal edema. There is no DVT or cellulitis. There is no calf tenderness. . There is no cyanosis or clubbing. Capillary refill is normal. There is swelling of the right elbow. 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 She is slightly confused at times. PSYCHIATRIC: The patient does not appear to be agitated or anxious. Labs- All tests 24 hr 01/30/19 01/31/19 01/31/19 09:19 03:59 03:59 WBC 12.5 H RBC 3.47 L Hgb 11.1 L D Hct 31.7 L MCV 91 MCH 31.9 MCHC 34.9 RDW 15.0 H Plt Count 210 Seg Neutrophils % 76.1 Lymphocytes % 11.1 L Monocytes % 12.1 Eosinophils % 0.3 Basophils % 0.4 Absolute Neutrophils 9.5 H Absolute Lymphocytes 1.4 Absolute Monocytes 1.5 H Absolute Eosinophils 0.0 Absolute Basophils 0.1 Sodium 135.9 L Potassium 4.5 Chloride 102 Carbon Dioxide 29 Anion Gap 5 BUN 18 Creatinine 0.91 Est GFR ( Amer) > 60 Est GFR (Non-Af Amer) > 60 Glucose 107 Calcium 8.7 Blood Type A POSITIVE Antibody Screen NEGATIVE Crossmatch See Detail IMPRESSIONS/RECOMMENDATION: 1. Anemia: Agree with transfusing the patient, and would recommend keeping the patient's hemoglobin 10 or above. 2.Status post accidental fall with fracture of the pelvis and right olecranion process. Patient is immediate postop surgical repair of the right elbow f racture. 3. Coronary artery disease: History of [place] x2 in the past. No recent anginal symptoms. Normal LV ejection Fraction by echocardiogram and normal EKG: Recommend continue the patient on beta-lopez and aspirin. Recommend placing the patient on telemetry monitoring. The patient has no anginal symptoms and her troponin is negative. 4. Hypertension: Blood pressure seems to be high. Will adjust her antihypertensives. 5. Hyperlipidemia: Continue statins. 6. Acute renal failure. At present her renal function is back to normal with a normal GFR of greater than 60. The patient most likely had acute renal failure rather than acute on chronic kidney disease. Medications reviewed. New medications added. Medical decision making is now of high complexity, in view of the need to adjust the patient's blood pressure medications. 40 minutes spent on this patient more than 50% of time spent in direct patient care. Will follow.
[2019-01-31] MEDS: CLONIDINE HCL 0.1 MG TABLET PO SCH ×2 (15:15→22:21)
[2019-01-31] MEDS: ATORVASTATIN CALCIUM 40 MG TABLET PO SCH (22:21)
[2019-02-01] MEDS: ASPIRIN 81 MG TABLET, ENT COATED PO SCH (09:38)
[2019-02-01] MEDS: AMLODIPINE BESYLATE 5 MG TABLET PO SCH ×2 (09:38→21:13)
[2019-02-01] MEDS: LOSARTAN POTASSIUM 50 MG TABLET PO SCH ×2 (09:38→21:13)
[2019-02-01] MEDS: METOPROLOL TARTRATE 50 MG TABLET PO SCH ×2 (09:38→21:12)
[2019-02-01] MEDS: CLONIDINE HCL 0.1 MG TABLET PO SCH ×2 (09:38→21:13)
[2019-02-01] MEDS: ATORVASTATIN CALCIUM 40 MG TABLET PO SCH (21:12)
--- NOTE | 2019-02-01 22:24 | Progress Note ---
Provider Note Provider Note: CARDIOLOGY PROGRESS NOTE by Dr. Corina Mcagrry on 02/01/2019. SUBJECTIVE: The patient complains of pain in his left hip. There is no pain at the operated right elbow. She has no anginal symptoms. There is no shortness of breath. There is no PND orthopnea or leg edema. There is no arrhythmia seen on the monitor. There is no TIA CVA symptoms. The patient denies any cough or sputum production. PHYSICAL EXAMINATION: The patient is well-built and well-nourished in no acute distress. She is well-groomed. Selected Entries 02/01/19 07:52 Temperature 99.0 F Temperature Oral Source Pulse Rate 90 Respiratory 21 H Rate Blood Pressure 126/65 H Blood Pressure 85 Mean BP Location Left Arm BP Position Supine O2 Sat by Pulse 99 Oximetry Oxygen Delivery Room Air Method HEAD: Head is atraumatic normocephalic. EYES: Tubes are equal round regular reactive to light accommodation. External ocular movements are normal. There is no conjunctival pallor. There is no scleral icterus. EARS: Tympanic membranes are intact. External auditory canals are clear. NOSE: There is no deviated nasal septum. There is no inflammation of the nasal mucous membrane. MOUTH: Mucous members of mouth are moist tongue is moist there is no ulcers. There is no bleeding from the gums. THROAT: There is no redness of the oropharynx. There is no exudates. SKIN: There is no skin rashes or skin lesions. There is no petechia or ecchymosis NECK: Is supple. There is no JVD. Carotids are equal there is no bruit. There is no lymphadenopathy. There is no goiter. There is no accessory muscle respiration use. Trachea central. LUNGS: Is clear to auscultation percussion without any rhonchi rales or wheezing. On palpation there is no chest wall tenderness. HEART: S1-S2 is heard there is no S3 gallop. There is no S4 gallop. There is systolic murmur left sternal border and the apex without radiation. There is no murmur of aortic stenosis or aortic regurgitation. There is no significant murmur of mitral regurgitation or tricuspid regurgitation. There is no rub. ABDOMEN: Is soft. Nontender. There is no hepatosplenomegaly. Bowel sounds are well heard. There is no tender areas masses. EXTREMITIES: Femorals are slightly diminished. There is no femoral bruits. Leg pulses are diminished. There is no pedal edema. There is no DVT or cellulitis. There is no calf tenderness. . There is no cyanosis or clubbing. Capillary refill is normal. There is swelling of the right elbow. 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 She is slightly confused at times. PSYCHIATRIC: The patient does not appear to be agitated or anxious. IMPRESSIONS/RECOMMENDATION: 1. Anemia: Resolved after transfusion. 2.Status post accidental fall with fracture of the pelvis and right olecranion process. Patient i had surgical repair of the right elbow fracture. Pelvic fracture will be managed conservatively as per orthopedics 3. Coronary artery disease: History of [place] x2 in the past. No recent anginal symptoms. Normal LV ejection Fraction by echocardiogram and normal EKG: Recommend continue the patient on beta-lopez and aspirin. Recommend placing the patient on telemetry monitoring. The patient has no anginal symptoms and her troponin is negative. 4. Hypertension: Blood pressure seems to be high. Will adjust her antihypertensives. 5. Hyperlipidemia: Continue statins. 6. Acute renal failure. At present her renal function is back to normal with a normal GFR of greater than 60. The patient most likely had acute renal failure rather than acute on chronic kidney disease. Medications reviewed. New medications added. Medical decision making is now of moderate complexity. 40 minutes spent on this patient more than 50% of time spent in direct patient care. Management plan discussed with Dr. Yañez, the attending physician on the case. Will follow.
--- NOTE | 2019-02-02 07:22 | PDOC PROGRESS REPORT ---
Subjective Progress Note for:: 02/02/19 Reason For Visit: FRACTURE OF THE RIGHT OLECRANON PROCESS 78-year-old female with nondisplaced pelvic fracture and a right olecranon fracture status post ORIF. Patient reports pain in the elbow and reports that she has not been out of bed. Physical Exam Vital Signs: Temp Pulse Resp BP Pulse Ox 36.8 C 82 17 120/35 L 100 02/02/19 04:00 02/02/19 04:00 02/02/19 04:00 02/02/19 04:00 02/02/19 04:00 Intake & Output 02/01/19 02/02/19 02/03/19 06:59 06:59 06:59 Intake Total 1540 450 Output Total 1300 200 Balance 240 250 Weight 69.1 kg 96.6 kg Physical Exam: Overweight middle-aged female lying in hospital bed. Complaining of pain but able to demonstrate an active range of motion of the right elbow which is limited. General appearance: PRESENT: mild distress, obese, well-developed, well- nourished Head exam: PRESENT: normocephalic Respiratory exam: PRESENT: unlabored Cardiovascular exam: PRESENT: RRR Vascular exam: PRESENT: normal capillary refill GI/Abdominal exam: PRESENT: soft Rectal exam: PRESENT: deferred Extremities exam: PRESENT: other - Right elbow dressing clean dry and intact. Passive range of motion of the elbow from approximately 30-130 degrees with pain at both extremes. Neurological exam: PRESENT: alert, awake, oriented to person, oriented to place, oriented to time, oriented to situation. ABSENT: motor sensory deficit Psychiatric exam: PRESENT: appropriate affect, normal mood. ABSENT: homicidal ideation, suicidal ideation Results Laboratory Results: 01/31/19 03:59 01/31/19 03:59 01/27/19 01/29/19 01/29/19 07:50 11:13 11:13 Creatine Kinase 186 H CK-MB (CK-2) 2.09 Troponin I < 0.012 < 0.012 01/29/19 01/29/19 01/30/19 16:43 16:43 00:47 Creatine Kinase 191 H 185 H CK-MB (CK-2) 2.61 Troponin I < 0.012 01/30/19 01/30/19 00:47 06:45 Creatine Kinase CK-MB (CK-2) 2.83 Troponin I < 0.012 < 0.012 Impressions: Hip/Pelvis X-Ray 01/27/19 00:00 IMPRESSION: Osteopenia with moderate degenerative change copyright 2011 [employer]- All Rights Reserved Cervical Spine CT 01/27/19 07:12 IMPRESSION: No fracture or static subluxation of the cervical spine. Head CT 01/27/19 07:12 IMPRESSION: CHRONIC CHANGES OF ATROPHY AND MICROVASCULAR ISCHEMIA. NO ACUTE PROCESS. EVIDENCE OF ACUTE STROKE: NO. Pelvis CT 01/27/19 07:12 IMPRESSION: 1. Multiple multiple pelvic fractures including: - minimally displaced fracture of the posterior right iliac crest extending to the sacroiliac joint. - small fracture along the right anterior sacral ala. - comminuted fracture of the left superior pubic ramus extending to the pubic symphysis. - fracture of the right superior pubic ramus adjacent to the acetabulum without definite acetabular extension. - bilateral mildly displaced inferior pubic rami fractures. 2. Associated pelvic hematoma adjacent to the pubic symphysis as above. 3. Osteopenia. Chest X-Ray 01/28/19 00:00 IMPRESSION: NO ACUTE RADIOGRAPHIC FINDING IN THE CHEST. Elbow X-Ray 01/29/19 00:00 IMPRESSION: Intra procedural imaging and fluoro Fluoroscopy 01/29/19 00:00 IMPRESSION: Intra procedural imaging and fluoro Assessment & Plan - Diagnosis (1) Fracture of right olecranon process Qualifiers: Encounter type: initial encounter Fracture type: closed Qualified Code(s): S52.021A - Displaced fracture of olecranon process without intraarticular extension of right ulna, initial encounter for closed fracture Is this a current diagnosis for this admission?: Yes Plan: Active range of motion as tolerated (2) Multiple pelvic fractures Qualifiers: Encounter type: initial encounter Fracture type: closed Fracture alignment: without disruption of pelvic ring Qualified Code(s): S32.82XA - Multiple fractures of pelvis without disruption of pelvic ring, initial encounter for closed fracture Is this a current diagnosis for this admission?: Yes Plan: Out of bed to chair weightbearing as tolerated - Time Time Spent with patient: 15-24 minutes Anticipated discharge: SNF Within: when bed available
[2019-02-02] MEDS: METOPROLOL TARTRATE 50 MG TABLET PO SCH ×2 (09:06→22:45)
[2019-02-02] MEDS: CLONIDINE HCL 0.1 MG TABLET PO SCH ×2 (09:06→22:44)
[2019-02-02] MEDS: ASPIRIN 81 MG TABLET, ENT COATED PO SCH (09:06)
[2019-02-02] MEDS: LOSARTAN POTASSIUM 50 MG TABLET PO SCH ×2 (09:06→22:45)
[2019-02-02] MEDS: AMLODIPINE BESYLATE 5 MG TABLET PO SCH ×2 (09:07→22:45)
[2019-02-02] MEDS: OXYCODONE-ACETAMINOPHEN 5-325 MG TABLET PO PRN (22:45)
[2019-02-02] MEDS: ATORVASTATIN CALCIUM 40 MG TABLET PO SCH (22:45)
[2019-02-03] MEDS: LOSARTAN POTASSIUM 50 MG TABLET PO SCH ×2 (11:07→22:19)
[2019-02-03] MEDS: CLONIDINE HCL 0.1 MG TABLET PO SCH ×2 (11:07→22:19)
[2019-02-03] MEDS: AMLODIPINE BESYLATE 5 MG TABLET PO SCH ×2 (11:07→22:19)
[2019-02-03] MEDS: METOPROLOL TARTRATE 50 MG TABLET PO SCH ×2 (11:07→22:19)
[2019-02-03] MEDS: ASPIRIN 81 MG TABLET, ENT COATED PO SCH (11:08)
--- NOTE | 2019-02-03 20:54 | Progress Note ---
Provider Note Provider Note: CARDIOLOGY PROGRESS NOTE by Dr. Corina Monique on 02/03/2019.
[2019-02-03] MEDS: ACETAMINOPHEN 325 MG TABLET PO PRN (22:18)
[2019-02-03] MEDS: ATORVASTATIN CALCIUM 40 MG TABLET PO SCH (22:19)
--- NOTE | 2019-02-04 06:47 | PDOC PROGRESS REPORT ---
Subjective Progress Note for:: 02/04/19 Reason For Visit: FRACTURE OF THE RIGHT OLECRANON PROCESS 78-year-old female now postop day 6 status post open reduction internal fixation of right olecranon fracture as well as a nondisplaced pelvic fracture. Temperature to 100.8 last night. Repeat labs drawn this morning. Physical Exam Vital Signs: Temp Pulse Resp BP Pulse Ox 36.6 C 68 19 111/56 L 100 02/04/19 03:13 02/04/19 03:13 02/04/19 03:13 02/04/19 03:13 02/04/19 03:13 Intake & Output 02/02/19 02/03/19 02/04/19 06:59 06:59 06:59 Intake Total 450 650 384 Output Total 200 1500 366 Balance 250 -850 18 Weight 96.6 kg 96.6 kg 96.6 kg General appearance: PRESENT: no acute distress Head exam: PRESENT: normocephalic Respiratory exam: PRESENT: unlabored Cardiovascular exam: PRESENT: RRR Pulses: PRESENT: +1 pedal pulses bilateral Vascular exam: PRESENT: normal capillary refill GI/Abdominal exam: PRESENT: soft Rectal exam: PRESENT: deferred Extremities exam: PRESENT: other - Right upper extremity dressing removed. Underlying incision is well approximated with trudi. The surrounding ecchymosis but no erythema and minimal induration. There is no drainage. Active range of motion is somewhat limited to both extremes with discomfort. Distal neurovascular examination is intact. Neurological exam: PRESENT: alert, awake, oriented to person, oriented to place, oriented to time, oriented to situation. ABSENT: motor sensory deficit Psychiatric exam: PRESENT: appropriate affect, normal mood. ABSENT: homicidal ideation, suicidal ideation Skin exam: PRESENT: dry, intact, warm. ABSENT: cyanosis, rash Results Laboratory Results: 01/31/19 03:59 01/31/19 03:59 01/27/19 01/29/19 01/29/19 07:50 11:13 11:13 Creatine Kinase 186 H CK-MB (CK-2) 2.09 Troponin I < 0.012 < 0.012 01/29/19 01/29/19 01/30/19 16:43 16:43 00:47 Creatine Kinase 191 H 185 H CK-MB (CK-2) 2.61 Troponin I < 0.012 01/30/19 01/30/19 00:47 06:45 Creatine Kinase CK-MB (CK-2) 2.83 Troponin I < 0.012 < 0.012 Impressions: Hip/Pelvis X-Ray 01/27/19 00:00 IMPRESSION: Osteopenia with moderate degenerative change copyright 2010 [employer]- All Rights Reserved Cervical Spine CT 01/27/19 07:12 IMPRESSION: No fracture or static subluxation of the cervical spine. Head CT 01/27/19 07:12 IMPRESSION: CHRONIC CHANGES OF ATROPHY AND MICROVASCULAR ISCHEMIA. NO ACUTE PROCESS. EVIDENCE OF ACUTE STROKE: NO. Pelvis CT 01/27/19 07:12 IMPRESSION: 1. Multiple multiple pelvic fractures including: - minimally displaced fracture of the posterior right iliac crest extending to the sacroiliac joint. - small fracture along the right anterior sacral ala. - comminuted fracture of the left superior pubic ramus extending to the pubic symphysis. - fracture of the right superior pubic ramus adjacent to the acetabulum without definite acetabular extension. - bilateral mildly displaced inferior pubic rami fractures. 2. Associated pelvic hematoma adjacent to the pubic symphysis as above. 3. Osteopenia. Chest X-Ray 01/28/19 00:00 IMPRESSION: NO ACUTE RADIOGRAPHIC FINDING IN THE CHEST. Elbow X-Ray 01/29/19 00:00 IMPRESSION: Intra procedural imaging and fluoro Fluoroscopy 01/29/19 00:00 IMPRESSION: Intra procedural imaging and fluoro Status: Imported from PACS Assessment & Plan - Diagnosis (1) Fracture of right olecranon process Qualifiers: Encounter type: initial encounter Fracture type: closed Qualified Code(s): S52.021A - Displaced fracture of olecranon process without intraarticular extension of right ulna, initial encounter for closed fracture Is this a current diagnosis for this admission?: Yes Plan: Patient can continue on activity as tolerated basis (2) Multiple pelvic fractures Qualifiers: Encounter type: initial encounter Fracture type: closed Fracture alignment: without disruption of pelvic ring Qualified Code(s): S32.82XA - Multiple fractures of pelvis without disruption of pelvic ring, initial encounter for closed fracture Is this a current diagnosis for this admission?: Yes Plan: Weightbearing as tolerated - Time Time Spent with patient: 15-24 minutes Anticipated discharge: SNF Within: when bed available
[2019-02-04 07:05] LABS: ABSOLUTE EOSINOPHILS # (AUTO) 0.1 10^3/uL (0.0-0.6); ABSOLUTE LYMPHOCYTES (AUTO) 0.8 10^3/uL (0.5-4.7); ABSOLUTE MONOCYTES (AUTO) 1.4 10^3/uL (0.1-1.4); BASOPHILS % (AUTO) 0.4 % (0-2); EOSINOPHILS % (AUTO) 1.1 % (0-6); HEMATOCRIT 30.9 % (36.0-47.0); HEMOGLOBIN 10.4 g/dL (12.0-15.5); LYMPHOCYTES % (AUTO) 7.4 % (13-45); MEAN CORPUSCULAR HEMOGLOBIN 31.4 pg (27.0-33.4); MEAN CORPUSCULAR HGB CONC 33.6 g/dL (32.0-36.0); MEAN CORPUSCULAR VOLUME 93 fl (80-97); MONOCYTES % (AUTO) 12.5 % (3-13); PLATELET COUNT 362 10^3/uL (150-450); RED BLOOD COUNT 3.31 10^6/uL (3.72-5.28); RED CELL DISTRIBUTION WIDTH 14.6 % (11.5-14.0); SEGMENTED NEUTROPHILS % (AUTO) 78.6 % (42-78); TOTAL CELLS COUNTED % (AUTO) 100 %; WHITE BLOOD COUNT 11.5 10^3/uL (4.0-10.5)
[2019-02-04 07:32] LABS: ANION GAP 5 (5-19); BLOOD UREA NITROGEN 23 mg/dL (7-20); CALCIUM 8.3 mg/dL (8.4-10.2); CARBON DIOXIDE 29 mmol/L (22-30); CHLORIDE 100 mmol/L (98-107); GLUCOSE 123 mg/dL (75-110); POTASSIUM 4.5 mmol/L (3.6-5.0); SODIUM 134.2 mmol/L (137-145)
[2019-02-04] MEDS: ACETAMINOPHEN 325 MG TABLET PO PRN (10:22)
[2019-02-04] MEDS: LOSARTAN POTASSIUM 50 MG TABLET PO SCH ×2 (10:22→21:52)
[2019-02-04] MEDS: CLONIDINE HCL 0.1 MG TABLET PO SCH ×2 (10:22→21:51)
[2019-02-04] MEDS: ASPIRIN 81 MG TABLET, ENT COATED PO SCH (10:22)
[2019-02-04] MEDS: METOPROLOL TARTRATE 50 MG TABLET PO SCH ×2 (10:23→21:52)
[2019-02-04] MEDS: AMLODIPINE BESYLATE 5 MG TABLET PO SCH ×2 (10:23→21:52)
[2019-02-04] MEDS: OXYCODONE-ACETAMINOPHEN 5-325 MG TABLET PO PRN (21:52)
[2019-02-04] MEDS: ATORVASTATIN CALCIUM 40 MG TABLET PO SCH (21:52)
--- NOTE | 2019-02-05 06:07 | PDOC PROGRESS REPORT ---
Subjective Progress Note for:: 02/05/19 Reason For Visit: FRACTURE OF THE RIGHT OLECRANON PROCESS No overnight changes. Right elbow wound remains clean dry and intact. Physical Exam Vital Signs: Temp Pulse Resp BP Pulse Ox 36.9 C 74 16 125/57 L 99 02/04/19 23:07 02/05/19 02:00 02/04/19 23:07 02/04/19 23:07 02/04/19 23:07 Intake & Output 02/03/19 02/04/19 02/05/19 06:59 06:59 06:59 Intake Total 325 062 9110 Output Total 3158 926 9286 Balance -850 18 -363 Weight 96.6 kg 96.6 kg 96.5 kg Extremities exam: PRESENT: other - Pain dry and intact. Results Laboratory Results: 02/04/19 05:30 02/04/19 05:30 02/04/19 02/04/19 05:30 05:30 WBC 11.5 H RBC 3.31 L Hgb 10.4 L Hct 30.9 L MCV 93 MCH 31.4 MCHC 33.6 RDW 14.6 H Plt Count 362 Seg Neutrophils % 78.6 H Lymphocytes % 7.4 L Monocytes % 12.5 Eosinophils % 1.1 Basophils % 0.4 Absolute Neutrophils 9.0 H Absolute Lymphocytes 0.8 Absolute Monocytes 1.4 Absolute Eosinophils 0.1 Absolute Basophils 0.0 Sodium 134.2 L Potassium 4.5 Chloride 100 Carbon Dioxide 29 Anion Gap 5 BUN 23 H Creatinine 0.86 Est GFR ( Amer) > 60 Est GFR (Non-Af Amer) > 60 Glucose 123 H Calcium 8.3 L 01/27/19 01/29/19 01/29/19 07:50 11:13 11:13 Creatine Kinase 186 H CK-MB (CK-2) 2.09 Troponin I < 0.012 < 0.012 01/29/19 01/29/19 01/30/19 16:43 16:43 00:47 Creatine Kinase 191 H 185 H CK-MB (CK-2) 2.61 Troponin I < 0.012 01/30/19 01/30/19 00:47 06:45 Creatine Kinase CK-MB (CK-2) 2.83 Troponin I < 0.012 < 0.012 Impressions: Hip/Pelvis X-Ray 01/27/19 00:00 IMPRESSION: Osteopenia with moderate degenerative change copyright 2011 [employer]- All Rights Reserved Cervical Spine CT 01/27/19 07:12 IMPRESSION: No fracture or static subluxation of the cervical spine. Head CT 01/27/19 07:12 IMPRESSION: CHRONIC CHANGES OF ATROPHY AND MICROVASCULAR ISCHEMIA. NO ACUTE PROCESS. EVIDENCE OF ACUTE STROKE: NO. Pelvis CT 01/27/19 07:12 IMPRESSION: 1. Multiple multiple pelvic fractures including: - minimally displaced fracture of the posterior right iliac crest extending to the sacroiliac joint. - small fracture along the right anterior sacral ala. - comminuted fracture of the left superior pubic ramus extending to the pubic symphysis. - fracture of the right superior pubic ramus adjacent to the acetabulum without definite acetabular extension. - bilateral mildly displaced inferior pubic rami fractures. 2. Associated pelvic hematoma adjacent to the pubic symphysis as above. 3. Osteopenia. Chest X-Ray 01/28/19 00:00 IMPRESSION: NO ACUTE RADIOGRAPHIC FINDING IN THE CHEST. Elbow X-Ray 01/29/19 00:00 IMPRESSION: Intra procedural imaging and fluoro Fluoroscopy 01/29/19 00:00 IMPRESSION: Intra procedural imaging and fluoro Status: Imported from PACS Assessment & Plan - Diagnosis (1) Fracture of right olecranon process Qualifiers: Encounter type: initial encounter Fracture type: closed Qualified C ode(s): S52.021A - Displaced fracture of olecranon process without intraarticular extension of right ulna, initial encounter for closed fracture Is this a current diagnosis for this admission?: Yes Plan: Patient awaiting transfer to [facility] facility. (2) Multiple pelvic fractures Qualifiers: Encounter type: initial encounter Fracture type: closed Fracture alignment: without disruption of pelvic ring Qualified Code(s): S32.82XA - Multiple fractures of pelvis without disruption of pelvic ring, initial encounter for closed fracture Is this a current diagnosis for this admission?: Yes - Plan Summary Plan Summary: Plan to transfer to [facility] facility when bed available
[2019-02-05] MEDS: CLONIDINE HCL 0.1 MG TABLET PO SCH ×2 (09:19→23:03)
[2019-02-05] MEDS: AMLODIPINE BESYLATE 5 MG TABLET PO SCH ×2 (09:19→23:03)
[2019-02-05] MEDS: ASPIRIN 81 MG TABLET, ENT COATED PO SCH (09:19)
[2019-02-05] MEDS: METOPROLOL TARTRATE 50 MG TABLET PO SCH ×2 (09:20→23:04)
[2019-02-05] MEDS: LOSARTAN POTASSIUM 50 MG TABLET PO SCH ×2 (09:20→23:04)
[2019-02-05] MEDS: ATORVASTATIN CALCIUM 40 MG TABLET PO SCH (23:04)
--- NOTE | 2019-02-06 08:29 | PDOC PROGRESS REPORT ---
Subjective Progress Note for:: 02/06/19 Subjective:: No issues overnight. Pain currently controlled. Patient lying in bed comfortably. Reason For Visit: FRACTURE OF THE RIGHT OLECRANON PROCESS Physical Exam Vital Signs: Temp Pulse Resp BP Pulse Ox 97.8 F 70 17 003/53 L 96 02/06/19 04:00 02/06/19 07:00 02/06/19 04:00 02/06/19 04:00 02/06/19 04:00 Intake & Output 02/05/19 02/06/19 02/07/19 06:59 06:59 06:59 Intake Total 1187 473 Output Total 1550 201 Balance -363 272 Weight 96.5 kg 95.3 kg Musculoskeletal exam: PRESENT: other - Right upper extremity: Dressing clean/dry/intact. Intact flexion-extension of the digits. No sensory deficits. Results Laboratory Results: 02/04/19 05:30 02/04/19 05:30 01/27/19 01/29/19 01/29/19 07:50 11:13 11:13 Creatine Kinase 186 H CK-MB (CK-2) 2.09 Troponin I < 0.012 < 0.012 01/29/19 01/29/19 01/30/19 16:43 16:43 00:47 Creatine Kinase 191 H 185 H CK-MB (CK-2) 2.61 Troponin I < 0.012 01/30/19 01/30/19 00:47 06:45 Creatine Kinase CK-MB (CK-2) 2.83 Troponin I < 0.012 < 0.012 Impressions: Hip/Pelvis X-Ray 01/27/19 00:00 IMPRESSION: Osteopenia with moderate degenerative change copyright 2011 [employer]- All Rights Reserved Cervical Spine CT 01/27/19 07:12 IMPRESSION: No fracture or static subluxation of the cervical spine. Head CT 01/27/19 07:12 IMPRESSION: CHRONIC CHANGES OF ATROPHY AND MICROVASCULAR ISCHEMIA. NO ACUTE PROCESS. EVIDENCE OF ACUTE STROKE: NO. Pelvis CT 01/27/19 07:12 IMPRESSION: 1. Multiple multiple pelvic fractures including: - minimally displaced fracture of the posterior right iliac crest extending to the sacroiliac joint. - small fracture along the right anterior sacral ala. - comminuted fracture of the left superior pubic ramus extending to the pubic symphysis. - fracture of the right superior pubic ramus adjacent to the acetabulum without definite acetabular extension. - bilateral mildly displaced inferior pubic rami fractures. 2. Associated pelvic hematoma adjacent to the pubic symphysis as above. 3. Osteopenia. Chest X-Ray 01/28/19 00:00 IMPRESSION: NO ACUTE RADIOGRAPHIC FINDING IN THE CHEST. Elbow X-Ray 01/29/19 00:00 IMPRESSION: Intra procedural imaging and fluoro Fluoroscopy 01/29/19 00:00 IMPRESSION: Intra procedural imaging and fluoro Assessment & Plan - Diagnosis (1) Fracture of right olecranon process Qualifiers: Encounter type: initial encounter Fracture type: closed Qualified C ode(s): S52.021A - Displaced fracture of olecranon process without intraarticular extension of right ulna, initial encounter for closed fracture Is this a current diagnosis for this admission?: Yes (2) Multiple pelvic fractures Qualifiers: Encounter type: initial encounter Fracture type: closed Fracture alignment: without disruption of pelvic ring Qualified Code(s): S32.82XA - Multiple fractures of pelvis without disruption of pelvic ring, initial encounter for closed fracture Is this a current diagnosis for this admission?: Yes Plan: Patient having no postoperative issues status post ORIF right olecranon. At this point awaiting group home facility placement when bed available.
[2019-02-06] MEDS: ASPIRIN 81 MG TABLET, ENT COATED PO SCH (10:41)
[2019-02-06] MEDS: CLONIDINE HCL 0.1 MG TABLET PO SCH ×2 (10:41→21:45)
[2019-02-06] MEDS: AMLODIPINE BESYLATE 5 MG TABLET PO SCH ×2 (10:42→21:45)
[2019-02-06] MEDS: METOPROLOL TARTRATE 50 MG TABLET PO SCH ×2 (10:42→21:46)
[2019-02-06] MEDS: LOSARTAN POTASSIUM 50 MG TABLET PO SCH ×2 (10:42→21:44)
[2019-02-06] MEDS: ATORVASTATIN CALCIUM 40 MG TABLET PO SCH (21:45)
[2019-02-07] MEDS: METOPROLOL TARTRATE 50 MG TABLET PO SCH ×2 (09:21→22:49)
[2019-02-07] MEDS: LOSARTAN POTASSIUM 50 MG TABLET PO SCH ×2 (09:22→22:49)
[2019-02-07] MEDS: ACETAMINOPHEN 325 MG TABLET PO PRN (09:22)
[2019-02-07] MEDS: CLONIDINE HCL 0.1 MG TABLET PO SCH ×2 (09:22→22:49)
[2019-02-07] MEDS: ASPIRIN 81 MG TABLET, ENT COATED PO SCH (09:22)
[2019-02-07] MEDS: AMLODIPINE BESYLATE 5 MG TABLET PO SCH ×2 (09:23→22:49)
--- NOTE | 2019-02-07 12:53 | PDOC PROGRESS REPORT ---
Subjective Subjective:: No issues overnight. Pain currently controlled. Patient lying in bed comfortably. Reason For Visit: FRACTURE OF THE RIGHT OLECRANON PROCESS Physical Exam Vital Signs: Temp Pulse Resp BP Pulse Ox 99.0 F 87 16 120/52 L 99 02/06/19 23:18 02/07/19 07:00 02/06/19 23:18 02/06/19 23:18 02/06/19 23:18 Intake & Output 02/06/19 02/07/19 02/08/19 06:59 06:59 06:59 Intake Total 473 1477 Output Total 201 1200 Balance 272 277 Weight 95.3 kg 95.3 kg Musculoskeletal exam: PRESENT: other - Left upper extremity: Incision clean/dry/intact no erythema or drainage. Swelling and ecchymosis noted. Patient has stiffness of the digits unable to make full composite fist. No sensory deficits. Results Laboratory Results: 02/04/19 05:30 02/04/19 05:30 01/27/19 01/29/19 01/29/19 07:50 11:13 11:13 Creatine Kinase 186 H CK-MB (CK-2) 2.09 Troponin I < 0.012 < 0.012 01/29/19 01/29/19 01/30/19 16:43 16:43 00:47 Creatine Kinase 191 H 185 H CK-MB (CK-2) 2.61 Troponin I < 0.012 01/30/19 01/30/19 00:47 06:45 Creatine Kinase CK-MB (CK-2) 2.83 Troponin I < 0.012 < 0.012 Impressions: Hip/Pelvis X-Ray 01/27/19 00:00 IMPRESSION: Osteopenia with moderate degenerative change copyright 2011 [employer]- All Rights Reserved Cervical Spine CT 01/27/19 07:12 IMPRESSION: No fracture or static subluxation of the cervical spine. Head CT 01/27/19 07:12 IMPRESSION: CHRONIC CHANGES OF ATROPHY AND MICROVASCULAR ISCHEMIA. NO ACUTE PROCESS. EVIDENCE OF ACUTE STROKE: NO. Pelvis CT 01/27/19 07:12 IMPRESSION: 1. Multiple multiple pelvic fractures including: - minimally displaced fracture of the posterior right iliac crest extending to the sacroiliac joint. - small fracture along the right anterior sacral ala. - comminuted fracture of the left superior pubic ramus extending to the pubic symphysis. - fracture of the right superior pubic ramus adjacent to the acetabulum without definite acetabular extension. - bilateral mildly displaced inferior pubic rami fractures. 2. Associated pelvic hematoma adjacent to the pubic symphysis as above. 3. Osteopenia. Chest X-Ray 01/28/19 00:00 IMPRESSION: NO ACUTE RADIOGRAPHIC FINDING IN THE CHEST. Elbow X-Ray 01/29/19 00:00 IMPRESSION: Intra procedural imaging and fluoro Fluoroscopy 01/29/19 00:00 IMPRESSION: Intra procedural imaging and fluoro Assessment & Plan - Diagnosis (1) Fracture of right olecranon process Qualifiers: Encounter type: initial encounter Fracture type: closed Qualified Code(s): S52.021A - Displaced fracture of olecranon process without intraarticular extension of right ulna, initial encounter for closed fracture Is this a current diagnosis for this admission?: Yes (2) Multiple pelvic fractures Qualifiers: Encounter type: initial encounter Fracture type: closed Fracture alignment: without disruption of pelvic ring Qualified Code(s): S32.82XA - Multiple fractures of pelvis without disruption of pelvic ring, initial encounter for closed fracture Is this a current diagnosis for this admission?: Yes Plan: Patient having no postoperative issues status post ORIF right olecranon. However she does have stiffness of the digits thus I have ordered OT referral. At this point awaiting [facility] facility placement when bed available.
[2019-02-07] MEDS: ATORVASTATIN CALCIUM 40 MG TABLET PO SCH (22:49)
[2019-02-08] MEDS: AMLODIPINE BESYLATE 5 MG TABLET PO SCH ×2 (10:34→22:34)
[2019-02-08] MEDS: CLONIDINE HCL 0.1 MG TABLET PO SCH ×2 (10:34→22:33)
[2019-02-08] MEDS: ASPIRIN 81 MG TABLET, ENT COATED PO SCH (10:34)
[2019-02-08] MEDS: METOPROLOL TARTRATE 50 MG TABLET PO SCH ×2 (10:34→22:34)
[2019-02-08] MEDS: LOSARTAN POTASSIUM 50 MG TABLET PO SCH ×2 (10:34→22:34)
[2019-02-08] MEDS: ATORVASTATIN CALCIUM 40 MG TABLET PO SCH (22:34)
--- NOTE | 2019-02-09 07:02 | PDOC TRANSFER SUMMARY ---
General - Admit/Disc Date/PCP Admission Date/Primary Care Provider: 01/27/19 10:29 Discharge Date: 02/09/19 - Discharge Diagnosis (1) Fracture of right olecranon process Is this a current diagnosis for this admission?: Yes (2) Multiple pelvic fractures Is this a current diagnosis for this admission?: Yes - Additional Information Resuscitation Status: Full Code Home Medications: Amlodipine Besylate 5 mg PO DAILY 09/24/14 Losartan Potassium 100 mg PO DAILY 09/24/14 Metoprolol Tartrate [Lopressor 50 mg Tablet] 50 mg PO BID 09/24/14 Atorvastatin Calcium [Lipitor 40 mg Tablet] 40 mg PO QHS 01/27/19 History of Present Illness Admission Date/PCP: 01/27/19 10:29 History of Present Illness: 78-year-old female status post a fall with multiple nondisplaced pelvic fractures, a pelvic hematoma, and a displaced right olecranon fracture. Hospital Course Hospital Course: Patient admitted through the emergency room for observation of a pelvic fr actures and for an open reduction internal fixation of the olecranon fracture. The latter occurs uneventfully. Mobilization from bed has been relatively slow. Presumably secondary to the pelvic hematoma the patient was anemic and received 2 units of packed red blood cells. No untoward events with right elbow surgery. Physical Exam Vital Signs: Temp Pulse Resp BP Pulse Ox 36.4 C 74 17 132/57 H 100 02/08/19 19:43 02/09/19 02:00 02/08/19 19:43 02/08/19 19:43 02/08/19 19:43 Intake & Output 02/08/19 02/09/19 02/10/19 06:59 06:59 06:59 Intake Total 970 500 Output Total 950 1325 Balance 20 -825 Weight 95.3 kg 96.8 kg General appearance: PRESENT: no acute distress, well-developed, well-nourished Head exam: PRESENT: normocephalic Respiratory exam: PRESENT: unlabored Cardiovascular exam: PRESENT: RRR Pulses: PRESENT: +1 pedal pulses bilateral Vascular exam: PRESENT: normal capillary refill GI/Abdominal exam: PRESENT: soft Rectal exam: PRESENT: deferred Extremities exam: PRESENT: other - Right elbow dressing is clean dry and intact. Passive range of motion is 30 to 130 degrees of elbow flexion and full pronation supination. Distal neurovascular examination is intact. Neurological exam: PRESENT: alert, awake, oriented to person, oriented to place, oriented to time, oriented to situation. ABSENT: motor sensory deficit Skin exam: PRESENT: dry, intact, warm. ABSENT: cyanosis, rash Results Laboratory Results: 02/04/19 05:30 02/04/19 05:30 01/27/19 01/29/19 01/29/19 07:50 11:13 11:13 Creatine Kinase 186 H CK-MB (CK-2) 2.09 Troponin I < 0.012 < 0.012 01/29/19 01/29/19 01/30/19 16:43 16:43 00:47 Creatine Kinase 191 H 185 H CK-MB (CK-2) 2.61 Troponin I < 0.012 01/30/19 01/30/19 00:47 06:45 Creatine Kinase CK-MB (CK-2) 2.83 Troponin I < 0.012 < 0.012 Impressions: Hip/Pelvis X-Ray 01/27/19 00:00 IMPRESSION: Osteopenia with moderate degenerative change copyright 2011 [employer]- All Rights Reserved Cervical Spine CT 01/27/19 07:12 IMPRESSION: No fracture or static subluxation of the cervical spine. Head CT 01/27/19 07:12 IMPRESSION: CHRONIC CHANGES OF ATROPHY AND MICROVASCULAR ISCHEMIA. NO ACUTE PROCESS. EVIDENCE OF ACUTE STROKE: NO. Pelvis CT 01/27/19 07:12 IMPRESSION: 1. Multiple multiple pelvic fractures including: - minimally displaced fracture of the posterior right iliac crest extending to the sacroiliac joint. - small fracture along the right anterior sacral ala. - comminuted fracture of the left superior pubic ramus extending to the pubic symphysis. - fracture of the right superior pubic ramus adjacent to the acetabulum without definite acetabular extension. - bilateral mildly displaced inferior pubic rami fractures. 2. Associated pelvic hematoma adjacent to the pubic symphysis as above. 3. Osteopenia. Chest X-Ray 01/28/19 00:00 IMPRESSION: NO ACUTE RADIOGRAPHIC FINDING IN THE CHEST. Elbow X-Ray 01/29/19 00:00 IMPRESSION: Intra procedural imaging and fluoro Fluoroscopy 01/29/19 00:00 IMPRESSION: Intra procedural imaging and fluoro Transfer Plan - Disposition Transfer Plan: Patient be transferred to a half-way facility for ongoing physical therapy with a mobilization on a weightbearing as tolerated basis. - Time Spent with Patient Time spent with patient: Less than 30 Minutes Qualifiers - * PATIENT BEING DISCHARGED WITH ANY OF THE FOLLOWING DIAGNOSIS: No VTE patient discharged on overlapping Therapy?: Yes Plan Discharge Plan: Patient can return to see Dr. Yañez and [facility] for surgery in 2 weeks for staple removal from the right elbow and for reevaluation of the pelvic fracture. Time Spent: Less than 30 Minutes
[2019-02-09 08:44] VITALS: BP 142/61
[2019-02-09] MEDS: METOPROLOL TARTRATE 50 MG TABLET PO SCH (09:29)
[2019-02-09] MEDS: LOSARTAN POTASSIUM 50 MG TABLET PO SCH (09:29)
[2019-02-09] MEDS: AMLODIPINE BESYLATE 5 MG TABLET PO SCH (09:29)
[2019-02-09] MEDS: CLONIDINE HCL 0.1 MG TABLET PO SCH (09:29)
[2019-02-09] MEDS: ASPIRIN 81 MG TABLET, ENT COATED PO SCH (09:29)
== END 2019-02-09 16:45 | DRG 511 ==
LOC: ER 04:43 → EH 10:29 → UNDOADMIN 10:29 → 4N 22:40 → EH 22:40
PROVIDERS: ADMIT Orthopaedic Surgery; ATTEND Orthopaedic Surgery
PROC: 0PSK04Z Reposition Right Ulna with Internal Fixation Device, Open Approach (ICD-10-PCS; principal; 2019-01-29 07:30)
PROC: 30233N1 Transfusion of Nonautologous Red Blood Cells into Peripheral Vein, Percutaneous Approach (ICD-10-PCS; 2019-01-30)
DX: S52.021A Displaced fracture of olecranon process without intraarticular extension of right ulna, initial encounter for closed fracture (principal); S32.82XA Multiple fractures of pelvis without disruption of pelvic ring, initial encounter for closed fracture; N17.9 Acute kidney failure, unspecified; D62 Acute posthemorrhagic anemia; S30.0XXA Contusion of lower back and pelvis, initial encounter; W01.0XXA Fall on same level from slipping, tripping and stumbling without subsequent striking against object, initial encounter; I25.10 Atherosclerotic heart disease of native coronary artery without angina pectoris; F03.90 Unspecified dementia, unspecified severity, without behavioral disturbance, psychotic disturbance, mood disturbance, and anxiety; E78.5 Hyperlipidemia, unspecified; I10 Essential (primary) hypertension; I25.2 Old myocardial infarction; Z79.899 Other long term (current) drug therapy
CPT/HCPCS: 01740; 36415; 36430; 70450; 71045; 72125; 72192; 80048; 80053; 82550; 82553; 84484; 85025; 85027; 85610; 85730; 86850; 86900; 86901; 86920; 93005; 93010; 93306; 99285; C1713; J0131; J0330; J0690; J1100; J1170; J2001; J2250; J2270; J2405; J2704; J7060; J7120; P9016; S0119